=== PATIENT | female | born 1980 | race Caucasian/White ===

== ENCOUNTER 2020-01-05 04:26 | Inpatient (IN) | payer MEDICAID, OTHER ==
[~2020-01-05] VITALS: Ht 167.6 cm; Wt 66.7 kg
[2020-01-05] MEDS ORDERED: SODIUM CHLORIDE 0.9% 1,000 ML IV ONE (05:06)
[2020-01-05 05:33] LABS: EOSINOPHILS % 3.6 % (0.0-5.0); LYMPHOCYTES % 10.1 % (20.0-50.0); MEAN CORPUSCULAR HEMOGLOBIN 26.7 pg (28.0-32.0); MEAN CORPUSCULAR VOLUME 82.2 fL (81.0-99.0); MEAN PLATELET VOLUME 7.3 fl (7.4-10.4); MONOCYTES % 7.6 % (2.0-8.0); NEUTROPHILS % 77.7 % (40.0-76.0); PLATELET 283 x1000/uL (130-400); RED BLOOD CELL COUNT 1.82 mill/uL (4.2-5.4); RED CELL DISTRIBUTION WIDTH 16.3 % (11.6-14.6)
[2020-01-05 05:37] LABS: HEMOGLOBIN. 4.9 g/dL (12.0-16.0)
[2020-01-05 05:41] LABS: CHLORIDE 110 mEq/L (98-107)
[2020-01-05] MEDS ORDERED: DOXYCYCLINE HYCLATE 100MG CAPSULE PO SCH (08:45)
[2020-01-05] MEDS ORDERED: CEFTRIAXONE 1 G PREMIX 50 ML IV SCH (09:00)
[2020-01-05] MEDS ORDERED: GUAIFENESIN 200MG/10ML SUGAR FREE UDC PO PRN (10:00)
[2020-01-05] MEDS ORDERED: ACETAMINOPHEN 325MG TABLET PO PRN (10:00)
[2020-01-05] MEDS ORDERED: ONDANSETRON HCL 4MG/2ML INJ IV PRN (10:00)
[2020-01-05] MEDS ORDERED: DEXTROSE 50% WATER 50ML SYRINGE IV PRN (10:00)
[2020-01-05 10:11] LABS: BG BASE EXCESS -14.3 mmol/L (-2.0-2.0); BG DEOXYHEMOGLOBIN 9.6 % (0.0-5.0); BG HCO3 ACT 12.2 mmol/L (22.0-26.0); BG METHEMOGLOBIN 0.3 % (0.0-1.5); BG OXYGEN SATURATION 90.4 % (92.0-98.5); BG OXYHEMOGLOBIN 90.1 % (94.0-97.0); BG PCO2 30.6 mmHg (35.0-45.0); BG PH 7.218 (7.350-7.450); BG PO2 68.7 mmHg (75.0-100.0); BG SAMPLE SITE LEFT BRACHIAL; BG TOTAL HEMOGLOBIN 5.5 g/dL (12.0-18.0); BG VENT MODE ROOM AIR
[2020-01-05 12:43] LABS: PARTIAL THROMBOPLASTIN TIME 31.7 sec (23.4-31.0); PROTHROMBIN TIME 10.7 sec (9.6-11.0)
[2020-01-05] MEDS: CALCITRIOL 0.25MCG CAPSULE PO SCH (12:53)
[2020-01-05] MEDS: CITRIC ACID/SODIUM CITRATE SOLN 30ML UDC PO SCH ×3 (12:53→18:41)
[2020-01-05] MEDS: BLOOD SUGAR DIAGNOSTIC STRIP TEST SCH ×4 (13:00→21:05)
[2020-01-05 13:12] LABS: FERRITIN 14 ng/mL (10-291)
[2020-01-05 13:13] LABS: HEPATITIS B SURFACE AB < 3.1 mIU/mL
[2020-01-05 13:24] LABS: HEPATITIS B SURFACE ANTIGEN NEGATIVE
[2020-01-05] MEDS ORDERED: LIDOCAINE HCL 1% 20ML VIAL (Pyxis) INJ ONE (13:43)
[2020-01-05] MEDS: SODIUM CHLORIDE 0.9% INJ 3ML FLUSH IVF SCH ×2 (14:46→21:06)
[2020-01-05 17:23] VITALS: BP 117/78
[2020-01-05 20:00] VITALS: BP 138/81
[2020-01-05 20:12] LABS: HEMATOCRIT 18.3 % (36.0-48.0)
[2020-01-05] MEDS: INSULIN LISPRO 100 UNITS/ML SUBCUT SCH (21:00)
[2020-01-05] MEDS: EPOETIN ALFA 10000UNITS/ML VIAL SUBCUT SCH (21:00)
[2020-01-06] VITALS (12 sets, daily range): BP systolic 122–157; BP diastolic 74–102
[2020-01-06] MEDS: SODIUM CHLORIDE 0.9% INJ 3ML FLUSH IVF SCH ×2 (06:08→15:15)
[2020-01-06] MEDS: BLOOD SUGAR DIAGNOSTIC STRIP TEST SCH ×4 (06:42→20:36)
[2020-01-06] MEDS: INSULIN LISPRO 100 UNITS/ML SUBCUT SCH ×4 (07:10→20:37)
[2020-01-06 07:37] LABS: BASOPHILS % 0.5 % (0.0-2.0); EOSINOPHILS % 2.9 % (0.0-5.0); LYMPHOCYTES % 13.3 % (20.0-50.0); MEAN CORPUSCULAR HEMOGLOBIN 28.2 pg (28.0-32.0); MEAN CORPUSCULAR VOLUME 85.1 fL (81.0-99.0); MEAN PLATELET VOLUME 7.9 fl (7.4-10.4); MONOCYTES % 7.8 % (2.0-8.0); NEUTROPHILS % 75.5 % (40.0-76.0); PLATELET 241 x1000/uL (130-400); RED BLOOD CELL COUNT 2.38 mill/uL (4.2-5.4); RED CELL DISTRIBUTION WIDTH 15.5 % (11.6-14.6)
[2020-01-06 07:56] LABS: PHOSPHORUS 8.6 mg/dL (2.5-4.9)
[2020-01-06 08:39] LABS: HEMATOCRIT. 20.3 % (36.0-48.0); HEMOGLOBIN. 6.7 g/dL (12.0-16.0)
[2020-01-06] MEDS: CALCITRIOL 0.25MCG CAPSULE PO SCH (08:50)
[2020-01-06] MEDS: CITRIC ACID/SODIUM CITRATE SOLN 30ML UDC PO SCH ×3 (08:50→17:50)
[2020-01-06 09:10] LABS: HIV SCREEN 4G Non Reactive (Non Reactive)
[2020-01-06] MEDS ORDERED: PNEUMOCOCCAL 23-VAL P-SAC VAC 0.5 ML IM ONE (10:00)
[2020-01-06] MEDS ORDERED: ALTEPLASE 2MG/VIAL ITC NR (12:00)
[2020-01-06] MEDS ORDERED: ALTEPLASE 2MG/VIAL ITC SCH (12:45)
[2020-01-06 17:06] LABS: ANTI-DNA DOUBLE STRANDED QUANT 2 IU/mL (0-9)
[2020-01-06 18:48] LABS: HEMATOCRIT 23.9 % (36.0-48.0); HEMOGLOBIN 8.2 g/dL (12.0-16.0)
[2020-01-06 19:10] LABS: PROTHROMBIN TIME 10.9 sec (9.6-11.0)
[2020-01-06] MEDS: ACETAMINOPHEN 325MG TABLET PO PRN (20:37)
[2020-01-07 07:04] LABS: BASOPHILS % 0.8 % (0.0-2.0); EOSINOPHILS % 3.7 % (0.0-5.0); HEMATOCRIT. 24.3 % (36.0-48.0); HEMOGLOBIN. 8.3 g/dL (12.0-16.0); MEAN CORPUSCULAR VOLUME 84.8 fL (81.0-99.0); MEAN PLATELET VOLUME 7.6 fl (7.4-10.4); MONOCYTES % 13.6 % (2.0-8.0); NEUTROPHILS % 58.9 % (40.0-76.0); PLATELET 214 x1000/uL (130-400); RED BLOOD CELL COUNT 2.86 mill/uL (4.2-5.4); RED CELL DISTRIBUTION WIDTH 15.4 % (11.6-14.6)
[2020-01-07 07:12] LABS: PHOSPHORUS 4.5 mg/dL (2.5-4.9)
[2020-01-07] MEDS: BLOOD SUGAR DIAGNOSTIC STRIP TEST SCH ×4 (07:20→20:52)
[2020-01-07] MEDS: INSULIN LISPRO 100 UNITS/ML SUBCUT SCH ×4 (07:50→20:56)
[2020-01-07 08:00] VITALS: BP 155/92
[2020-01-07] MEDS: CITRIC ACID/SODIUM CITRATE SOLN 30ML UDC PO SCH ×3 (08:29→17:19)
[2020-01-07] MEDS: CALCITRIOL 0.25MCG CAPSULE PO SCH (08:29)
[2020-01-07] MEDS ORDERED: MAGNESIUM 2 G PREMIX 50 ML IV NR (11:00)
[2020-01-07] MEDS: DIPHENHYDRAMINE 50MG/ML VIAL IV PRN ×2 (11:27→20:56)
[2020-01-07 12:00] VITALS: BP 149/84
[2020-01-07] MEDS: SODIUM CHLORIDE 0.9% INJ 3ML FLUSH IVF SCH ×2 (13:00→20:53)
[2020-01-07 16:00] VITALS: BP 135/81
[2020-01-07 17:08] LABS: ANA IFA Negative (.)
[2020-01-07 20:00] VITALS: BP_SYST 155; BP_SYST 157; BP_DIAS 89; BP_DIAS 94
[2020-01-07] MEDS: MAGNESIUM OXIDE 400MG TABLET PO SCH (20:52)
[2020-01-07] MEDS: EPOETIN ALFA 10000UNITS/ML VIAL SUBCUT SCH (20:52)
[2020-01-08] VITALS (17 sets, daily range): BP systolic 133–165; BP diastolic 85–101
[2020-01-08] MEDS: SODIUM CHLORIDE 0.9% INJ 3ML FLUSH IVF SCH ×2 (05:59→14:00)
[2020-01-08] MEDS: BLOOD SUGAR DIAGNOSTIC STRIP TEST SCH ×4 (06:39→21:00)
[2020-01-08 06:53] LABS: BASOPHILS % 0.7 % (0.0-2.0); EOSINOPHILS % 4.6 % (0.0-5.0); HEMATOCRIT. 23.7 % (36.0-48.0); HEMOGLOBIN. 8.2 g/dL (12.0-16.0); MEAN CORPUSCULAR VOLUME 84.4 fL (81.0-99.0); MEAN PLATELET VOLUME 7.7 fl (7.4-10.4); MONOCYTES % 13.8 % (2.0-8.0); NEUTROPHILS % 60.9 % (40.0-76.0); PLATELET 201 x1000/uL (130-400); RED BLOOD CELL COUNT 2.81 mill/uL (4.2-5.4); RED CELL DISTRIBUTION WIDTH 15.5 % (11.6-14.6)
[2020-01-08] MEDS ORDERED: CEFAZOLIN 1000MG PREMIX 50 ML IV ONE ×2 (07:00→07:57)
[2020-01-08] MEDS: INSULIN LISPRO 100 UNITS/ML SUBCUT SCH ×4 (07:50→20:06)
[2020-01-08] MEDS ORDERED: LIDOCAINE HCL 1% 20ML VIAL (Pyxis) INJ ONE (07:53)
[2020-01-08] MEDS ORDERED: SODIUM BICARBONATE 4% (2.4MEQ) 5ML VIAL IV ONE (07:53)
[2020-01-08] MEDS ORDERED: HEPARIN 1000 UNITS/ML 10ML ONE (07:54)
[2020-01-08] MEDS ORDERED: FENTANYL CITRATE/PF 50MCG/ML 2ML VIAL ONE (07:57)
[2020-01-08] MEDS ORDERED: LIDOCAINE HCL/EPINEPHRINE 1%-EPI 1:100,000 20 ML VIAL ONE (08:03)
[2020-01-08] MEDS ORDERED: FENTANYL CITRATE/PF 50MCG/ML 2ML VIAL IV ONE (08:45)
[2020-01-08] MEDS: MAGNESIUM OXIDE 400MG TABLET PO SCH ×2 (09:49→20:05)
[2020-01-08] MEDS: CALCITRIOL 0.25MCG CAPSULE PO SCH (09:49)
[2020-01-08] MEDS: CLONIDINE 0.1MG TABLET PO PRN (17:07)
[2020-01-08] MEDS: ACETAMINOPHEN 325MG TABLET PO PRN (17:08)
[2020-01-09] VITALS: BP 146/92
[2020-01-09] MEDS: SODIUM CHLORIDE 0.9% INJ 3ML FLUSH IVF SCH ×4 (00:53→21:55)
[2020-01-09] MEDS: ACETAMINOPHEN 325MG TABLET PO PRN ×2 (00:58→20:37)
[2020-01-09] MEDS: ZOLPIDEM TARTRATE 5MG TABLET PO PRN ×2 (01:00→21:54)
[2020-01-09 04:00] VITALS: BP 145/90
[2020-01-09] MEDS: BLOOD SUGAR DIAGNOSTIC STRIP TEST SCH ×4 (06:51→20:36)
[2020-01-09] MEDS: INSULIN LISPRO 100 UNITS/ML SUBCUT SCH ×4 (07:50→20:36)
[2020-01-09 08:00] VITALS: BP 142/92
[2020-01-09 08:19] LABS: BASOPHILS % 0.6 % (0.0-2.0); EOSINOPHILS % 5.1 % (0.0-5.0); HEMOGLOBIN. 8.1 g/dL (12.0-16.0); MEAN CORPUSCULAR HEMOGLOBIN 28.9 pg (28.0-32.0); MEAN CORPUSCULAR VOLUME 85.2 fL (81.0-99.0); MEAN PLATELET VOLUME 7.9 fl (7.4-10.4); NEUTROPHILS % 60.3 % (40.0-76.0); PLATELET 194 x1000/uL (130-400); RED BLOOD CELL COUNT 2.81 mill/uL (4.2-5.4); RED CELL DISTRIBUTION WIDTH 15.6 % (11.6-14.6)
[2020-01-09 08:57] LABS: PHOSPHORUS 4.6 mg/dL (2.5-4.9)
[2020-01-09] MEDS: MAGNESIUM OXIDE 400MG TABLET PO SCH ×2 (09:17→20:37)
[2020-01-09] MEDS: CALCITRIOL 0.25MCG CAPSULE PO SCH (09:17)
[2020-01-09 12:30] VITALS: BP 136/90
[2020-01-09 16:30] VITALS: BP 140/92
[2020-01-09] MEDS: LOSARTAN POTASSIUM 50 MG TABLET PO SCH (17:20)
[2020-01-09 20:03] VITALS: BP 134/84
[2020-01-09 21:31] LABS: *AMPHETAMINES SCREEN URINE NEGATIVE (NEGATIVE); *BARBITURATES SCREEN URINE NEGATIVE (NEGATIVE); *BENZODIAZEPINES SCREEN URINE NEGATIVE (NEGATIVE); *COCAINE SCREEN URINE NEGATIVE (NEGATIVE); METHADONE URINE SCREEN NEGATIVE (NEGATIVE); OPIATES URINE SCREEN NEGATIVE (NEGATIVE)
[2020-01-09 21:32] LABS: CANNABINOID URINE SCREEN NEGATIVE (NEGATIVE); PHENCYCLIDINE URINE SCREEN NEGATIVE (NEGATIVE)
[2020-01-09] MEDS: EPOETIN ALFA 10000UNITS/ML VIAL SUBCUT SCH (21:54)
[2020-01-10] VITALS (7 sets, daily range): BP systolic 93–154; BP diastolic 51–97
[2020-01-10] MEDS: BLOOD SUGAR DIAGNOSTIC STRIP TEST SCH ×4 (06:18→21:00)
[2020-01-10] MEDS: SODIUM CHLORIDE 0.9% INJ 3ML FLUSH IVF SCH ×3 (06:18→22:09)
[2020-01-10 06:29] LABS: BASOPHILS % 0.5 % (0.0-2.0); HEMATOCRIT. 22.6 % (36.0-48.0); HEMOGLOBIN. 7.7 g/dL (12.0-16.0); LYMPHOCYTES % 18.2 % (20.0-50.0); MEAN CORPUSCULAR VOLUME 84.9 fL (81.0-99.0); MONOCYTES % 12.5 % (2.0-8.0); NEUTROPHILS % 62.8 % (40.0-76.0); PLATELET 206 x1000/uL (130-400); RED BLOOD CELL COUNT 2.67 mill/uL (4.2-5.4); RED CELL DISTRIBUTION WIDTH 15.3 % (11.6-14.6)
[2020-01-10 07:30] LABS: PHOSPHORUS 4.6 mg/dL (2.5-4.9)
[2020-01-10] MEDS: INSULIN LISPRO 100 UNITS/ML SUBCUT SCH ×4 (07:33→21:00)
[2020-01-10] MEDS: MAGNESIUM OXIDE 400MG TABLET PO SCH ×2 (09:01→22:08)
[2020-01-10] MEDS: LOSARTAN POTASSIUM 50 MG TABLET PO SCH (09:01)
[2020-01-10] MEDS: ACETAMINOPHEN 325MG TABLET PO PRN (09:02)
[2020-01-11] VITALS: BP 166/97
[2020-01-11 04:00] VITALS: BP 156/93
[2020-01-11] MEDS: SODIUM CHLORIDE 0.9% INJ 3ML FLUSH IVF SCH ×3 (06:14→20:55)
[2020-01-11 06:35] LABS: BASOPHILS % 0.6 % (0.0-2.0); EOSINOPHILS % 5.5 % (0.0-5.0); HEMATOCRIT. 24.3 % (36.0-48.0); HEMOGLOBIN. 8.2 g/dL (12.0-16.0); LYMPHOCYTES % 17.7 % (20.0-50.0); MEAN CORPUSCULAR HEMOGLOBIN 29.3 pg (28.0-32.0); MEAN CORPUSCULAR VOLUME 86.3 fL (81.0-99.0); MONOCYTES % 12.1 % (2.0-8.0); NEUTROPHILS % 64.1 % (40.0-76.0); PLATELET 224 x1000/uL (130-400); RED BLOOD CELL COUNT 2.82 mill/uL (4.2-5.4); RED CELL DISTRIBUTION WIDTH 15.5 % (11.6-14.6)
[2020-01-11] MEDS: BLOOD SUGAR DIAGNOSTIC STRIP TEST SCH ×4 (07:20→20:54)
[2020-01-11 07:23] LABS: PHOSPHORUS 5.3 mg/dL (2.5-4.9)
[2020-01-11] MEDS: INSULIN LISPRO 100 UNITS/ML SUBCUT SCH ×4 (07:50→21:07)
[2020-01-11 08:00] VITALS: BP 155/96
[2020-01-11] MEDS: LOSARTAN POTASSIUM 50 MG TABLET PO SCH (09:00)
[2020-01-11] MEDS: MAGNESIUM OXIDE 400MG TABLET PO SCH ×2 (09:10→20:50)
[2020-01-11 12:00] VITALS: BP 148/90
[2020-01-11] MEDS ORDERED: HEPARIN SODIUM 1,000 UNIT/1ML VIAL IV NR (14:30)
[2020-01-11 16:00] VITALS: BP 122/88
[2020-01-11 20:00] VITALS: BP 160/94
[2020-01-12] VITALS: BP 159/102
[2020-01-12 04:00] VITALS: BP 162/109
[2020-01-12] MEDS: SODIUM CHLORIDE 0.9% INJ 3ML FLUSH IVF SCH ×2 (05:11→12:15)
[2020-01-12] MEDS: INSULIN LISPRO 100 UNITS/ML SUBCUT SCH ×2 (05:11→12:13)
[2020-01-12] MEDS: BLOOD SUGAR DIAGNOSTIC STRIP TEST SCH ×2 (05:11→12:07)
[2020-01-12] MEDS: CLONIDINE 0.1MG TABLET PO PRN (06:03)
[2020-01-12 08:00] VITALS: BP 135/92
[2020-01-12] MEDS: LOSARTAN POTASSIUM 50 MG TABLET PO SCH (08:08)
[2020-01-12] MEDS: MAGNESIUM OXIDE 400MG TABLET PO SCH (08:08)
[2020-01-12] MEDS ORDERED: LOSA50TA3 PO (10:40)
[2020-01-12 11:05] LABS: BASOPHILS % 0.6 % (0.0-2.0); EOSINOPHILS % 5.6 % (0.0-5.0); HEMATOCRIT. 23.6 % (36.0-48.0); HEMOGLOBIN. 7.8 g/dL (12.0-16.0); LYMPHOCYTES % 14.1 % (20.0-50.0); MEAN CORPUSCULAR HEMOGLOBIN 28.6 pg (28.0-32.0); MEAN CORPUSCULAR VOLUME 86.3 fL (81.0-99.0); MEAN PLATELET VOLUME 7.7 fl (7.4-10.4); MONOCYTES % 12.3 % (2.0-8.0); NEUTROPHILS % 67.4 % (40.0-76.0); PLATELET 213 x1000/uL (130-400); RED BLOOD CELL COUNT 2.73 mill/uL (4.2-5.4); RED CELL DISTRIBUTION WIDTH 15.7 % (11.6-14.6)
[2020-01-12 12:00] VITALS: BP 135/85
[2020-01-12 15:42] VITALS: BP 127/74
[2020-01-12 16:00] VITALS: BP 127/74
== END 2020-01-12 16:25 | disposition home or self-care (01) | DRG 469 ==
LOC: ER 04:26 → MICUSO 07:19 → 6WST 17:03
PROVIDERS: ADMIT Internal Medicine; ATTEND Internal Medicine
PROC: 30233N1 Transfusion of Nonautologous Red Blood Cells into Peripheral Vein, Percutaneous Approach (ICD-10-PCS; principal; 2020-01-05)
PROC: 5A1D70Z Performance of Urinary Filtration, Intermittent, Less than 6 Hours Per Day (ICD-10-PCS; 2020-01-06)
PROC: 5A1D70Z Performance of Urinary Filtration, Intermittent, Less than 6 Hours Per Day (ICD-10-PCS; 2020-01-07)
PROC: 0JHD3XZ Insertion of Tunneled Vascular Access Device into Right Upper Arm Subcutaneous Tissue and Fascia, Percutaneous Approach (ICD-10-PCS; 2020-01-08)
PROC: 02HV33Z Insertion of Infusion Device into Superior Vena Cava, Percutaneous Approach (ICD-10-PCS; 2020-01-08)
PROC: B5181ZA Fluoroscopy of Superior Vena Cava using Low Osmolar Contrast, Guidance (ICD-10-PCS; 2020-01-08)
PROC: 5A1D70Z Performance of Urinary Filtration, Intermittent, Less than 6 Hours Per Day (ICD-10-PCS; 2020-01-10)
PROC: 5A1D70Z Performance of Urinary Filtration, Intermittent, Less than 6 Hours Per Day (ICD-10-PCS; 2020-01-12)
DX: N17.9 Acute kidney failure, unspecified (principal); J96.90 Respiratory failure, unspecified, unspecified whether with hypoxia or hypercapnia; E43 Unspecified severe protein-calorie malnutrition; J81.1 Chronic pulmonary edema; J90 Pleural effusion, not elsewhere classified; E10.22 Type 1 diabetes mellitus with diabetic chronic kidney disease; N18.6 End stage renal disease; E83.51 Hypocalcemia; I12.9 Hypertensive chronic kidney disease with stage 1 through stage 4 chronic kidney disease, or unspecified chronic kidney disease; D63.8 Anemia in other chronic diseases classified elsewhere; D64.9 Anemia, unspecified; L29.9 Pruritus, unspecified; N25.81 Secondary hyperparathyroidism of renal origin; Z82.49 Family history of ischemic heart disease and other diseases of the circulatory system; Z79.4 Long term (current) use of insulin; Z84.1 Family history of disorders of kidney and ureter; Z83.3 Family history of diabetes mellitus; Z87.891 Personal history of nicotine dependence; Z79.899 Other long term (current) drug therapy; Z68.23 Body mass index [BMI] 23.0-23.9, adult
CPT/HCPCS: 36415; 36558; 36589; 36600; 71045; 76770; 76937; 77001; 80048; 80053; 80305; 82270; 82375; 82550; 82728; 82805; 82962; 83010; 83036; 83540; 83550; 83605; 83615; 83735; 83970; 84100; 84443; 84484; 85014; 85018; 85025; 85049; 85384; 86160; 86225; 86256; 86705; 86706; 86803; 86850; 86900; 86920; 87340; 87389; 90732; 93005; 99152; 99153; 99285; C1750; C1752; C1769; J0690; J0696; J0885; J1200; J1642; J1644; J1815; J2997; J3010; J3475; J3490; J7030; P9016; G0500

== ENCOUNTER 2020-01-18 12:08 | Inpatient (IN) | payer MEDICAID, OTHER ==
[~2020-01-18] VITALS: Ht 165.1 cm; Wt 77.6 kg
[~2020-01-18 12:08] MED LIST: LOSA50TA3 PO
[2020-01-18 14:07] LABS: BASOPHILS % 0.6 % (0.0-2.0); EOSINOPHILS % 0.4 % (0.0-5.0); HEMATOCRIT. 27.8 % (36.0-48.0); HEMOGLOBIN. 9.2 g/dL (12.0-16.0); LYMPHOCYTES % 8.6 % (20.0-50.0); MEAN CORPUSCULAR HEMOGLOBIN 28.4 pg (28.0-32.0); MEAN CORPUSCULAR VOLUME 85.3 fL (81.0-99.0); MEAN PLATELET VOLUME 7.6 fl (7.4-10.4); MONOCYTES % 5.9 % (2.0-8.0); NEUTROPHILS % 84.5 % (40.0-76.0); PLATELET 226 x1000/uL (130-400); RED BLOOD CELL COUNT 3.26 mill/uL (4.2-5.4); RED CELL DISTRIBUTION WIDTH 15.5 % (11.6-14.6)
[2020-01-18 14:15] LABS: CHLORIDE 103 mEq/L (98-107)
[2020-01-18 14:20] LABS: HCG SCREEN NEGATIVE
[2020-01-18] MEDS ORDERED: HYDROCODONE/ACETAMINOPHEN 10/325MG TABLET PO PRN (17:45)
[2020-01-18] MEDS ORDERED: DOCUSATE SODIUM 100MG CAPSULE PO PRN (17:45)
[2020-01-18] MEDS ORDERED: CLONIDINE 0.1MG TABLET PO PRN (17:45)
[2020-01-18] MEDS ORDERED: ACETAMINOPHEN 325MG TABLET PO PRN (17:45)
[2020-01-18] MEDS ORDERED: HYDRALAZINE 20MG/ML VIAL IV PRN (17:45)
[2020-01-18] MEDS ORDERED: DEXTROSE 50% WATER 50ML SYRINGE IV PRN (17:45)
[2020-01-18] MEDS ORDERED: ONDANSETRON HCL 4MG/2ML INJ IV PRN (17:45)
[2020-01-18] MEDS ORDERED: MAGNESIUM/ALUMINUM HYDROXIDE/SIMETHICONE 30ML UDC PO PRN (17:45)
[2020-01-18] MEDS ORDERED: IPRATROPIUM/ALBUTEROL 0.5-3(2.5)MG/3ML NEB NEB PRN (17:45)
[2020-01-18] MEDS ORDERED: GUAIFENESIN 200MG/10ML SUGAR FREE UDC PO PRN (17:45)
[2020-01-18] MEDS ORDERED: MORPHINE SULFATE 2 MG/ML CPJ (NOT FOR IM USE) IV PRN (17:45)
[2020-01-18] MEDS ORDERED: LORAZEPAM 2MG/ML CPJ IV PRN (17:45)
[2020-01-18] MEDS ORDERED: DIPHENHYDRAMINE 50MG/ML VIAL IV PRN (17:45)
[2020-01-18] MEDS ORDERED: ENOXAPARIN 40MG/0.4ML SYR SUBCUT SCH (18:00)
[2020-01-18] MEDS ORDERED: ENOXAPARIN 30MG/0.3ML SYR SUBCUT SCH (18:00)
[2020-01-18 19:30] LABS: CLARITY URINE TURBID (CLEAR); COLOR URINE YELLOW (YELLOW); KETONES URINE NEGATIVE (NEGATIVE); LEUKOCYTE ESTERASE URINE 3+ (NEGATIVE); NITRITE URINE NEGATIVE (NEGATIVE); OCCULT BLOOD URINE 2+ (NEGATIVE); PROTEIN URINE 4+ (NEGATIVE); SPECIFIC GRAVITY URINE 1.012 (1.005-1.030); UROBILINOGEN URINE 0.2 E.U./dL (0.2-1.0)
[2020-01-18] MEDS: INSULIN LISPRO 100 UNITS/ML SUBCUT SCH ×2 (21:00→21:21)
[2020-01-18] MEDS: BLOOD SUGAR DIAGNOSTIC STRIP TEST SCH (21:15)
[2020-01-18] MEDS ORDERED: CEFTRIAXONE 1 G PREMIX 50 ML IV SCH (23:30)
[2020-01-18] MEDS: SODIUM CHLORIDE 0.9% INJ 3ML FLUSH IVF SCH (23:48)
[2020-01-19] VITALS: BP_SYST 141; BP_SYST 148; BP_DIAS 90
[2020-01-19 02:14] LABS: CREATINE KINASE 116 IU/L (26-192)
[2020-01-19 02:15] LABS: CREATINE KINASE MB FRACTION 3.3 ng/mL (0.5-3.6)
[2020-01-19 04:00] VITALS: BP 148/90
[2020-01-19] MEDS: SODIUM CHLORIDE 0.9% INJ 3ML FLUSH IVF SCH ×2 (05:40→13:18)
[2020-01-19] MEDS: INSULIN LISPRO 100 UNITS/ML SUBCUT SCH ×3 (06:30→16:53)
[2020-01-19] MEDS: BLOOD SUGAR DIAGNOSTIC STRIP TEST SCH ×3 (06:30→16:53)
[2020-01-19 08:00] VITALS: BP 144/90
[2020-01-19 09:41] LABS: BASOPHILS % 0.9 % (0.0-2.0); EOSINOPHILS % 3.4 % (0.0-5.0); HEMATOCRIT. 25.7 % (36.0-48.0); HEMOGLOBIN. 8.5 g/dL (12.0-16.0); LYMPHOCYTES % 15.2 % (20.0-50.0); MEAN CORPUSCULAR HEMOGLOBIN 28.4 pg (28.0-32.0); MEAN CORPUSCULAR VOLUME 85.6 fL (81.0-99.0); MEAN PLATELET VOLUME 8.5 fl (7.4-10.4); MONOCYTES % 10.5 % (2.0-8.0); PLATELET 227 x1000/uL (130-400); RED CELL DISTRIBUTION WIDTH 15.6 % (11.6-14.6)
[2020-01-19 09:48] LABS: CHLORIDE 101 mEq/L (98-107)
[2020-01-19 09:56] LABS: LDL CHOLESTEROL 44 mg/dL (5-100)
[2020-01-19 09:57] LABS: CREATINE KINASE 112 IU/L (26-192)
[2020-01-19 09:58] LABS: CREATINE KINASE MB FRACTION 3.1 ng/mL (0.5-3.6); HDL CHOLESTEROL 57 mg/dL (40-59); T4 FREE 1.06 ng/dL (0.76-1.46)
[2020-01-19] MEDS ORDERED: LOSARTAN POTASSIUM 50 MG TABLET PO SCH (10:45)
[2020-01-19 12:00] VITALS: BP 131/84
[2020-01-19] MEDS ORDERED: CALCIUM CARBONATE 1250MG TABLET (500MG ELEMENTAL CALCIUM) PO SCH (12:40)
[2020-01-19] MEDS ORDERED: CALCITRIOL 0.5MCG CAPSULE PO SCH (13:00)
[2020-01-19 16:00] VITALS: BP 128/83
[2020-01-19 16:19] VITALS: BP 128/83
[2020-01-19] MEDS ORDERED: EPOETIN ALFA 4000UNITS/ML VIAL SUBCUT SCH (21:00)
[2020-01-19] MEDS ORDERED: ATORVASTATIN CALCIUM 20MG TABLET PO SCH (21:00)
== END 2020-01-19 19:35 | disposition home or self-care (01) | DRG 420 ==
LOC: ER 12:08 → 8WST 15:30 → EDBEDREQ 15:34 → EDBEDREQTM 15:34 → ENRESERV 20:37
PROVIDERS: ADMIT Internal Medicine; ATTEND Internal Medicine
PROC: 5A1D70Z Performance of Urinary Filtration, Intermittent, Less than 6 Hours Per Day (ICD-10-PCS; principal; 2020-01-19)
DX: E11.649 Type 2 diabetes mellitus with hypoglycemia without coma (principal); I12.0 Hypertensive chronic kidney disease with stage 5 chronic kidney disease or end stage renal disease; E46 Unspecified protein-calorie malnutrition; E11.22 Type 2 diabetes mellitus with diabetic chronic kidney disease; E83.51 Hypocalcemia; D64.9 Anemia, unspecified; N18.6 End stage renal disease; N39.0 Urinary tract infection, site not specified; N25.81 Secondary hyperparathyroidism of renal origin; Z82.49 Family history of ischemic heart disease and other diseases of the circulatory system; Z83.3 Family history of diabetes mellitus; Z84.1 Family history of disorders of kidney and ureter; Z99.2 Dependence on renal dialysis; Z68.28 Body mass index [BMI] 28.0-28.9, adult
CPT/HCPCS: 36415; 71045; 80053; 80061; 81003; 82550; 82553; 82962; 83880; 84439; 84443; 84484; 84703; 85025; 93005; 93970; 99285; J0696; J0885; J1650; J1815

== ENCOUNTER 2020-01-26 11:22 | Inpatient (IN) | payer MEDICAID, SELFPAY ==
[~2020-01-26] VITALS: Ht 165.1 cm; Wt 62.6 kg
[2020-01-26 12:12] LABS: BASOPHILS % 0.9 % (0.0-2.0); EOSINOPHILS % 1.2 % (0.0-5.0); HEMATOCRIT. 26.3 % (36.0-48.0); HEMOGLOBIN. 8.7 g/dL (12.0-16.0); LYMPHOCYTES % 22.8 % (20.0-50.0); MEAN CORPUSCULAR HEMOGLOBIN 27.9 pg (28.0-32.0); MEAN CORPUSCULAR VOLUME 84.5 fL (81.0-99.0); MEAN PLATELET VOLUME 9.3 fl (7.4-10.4); MONOCYTES % 10.3 % (2.0-8.0); NEUTROPHILS % 64.8 % (40.0-76.0); PLATELET 158 x1000/uL (130-400); RED BLOOD CELL COUNT 3.11 mill/uL (4.2-5.4); RED CELL DISTRIBUTION WIDTH 15.1 % (11.6-14.6)
[2020-01-26 12:18] LABS: CHLORIDE 102 mEq/L (98-107)
[2020-01-26 14:13] LABS: CLARITY URINE TURBID (CLEAR); COLOR URINE DK YELLOW (YELLOW); KETONES URINE NEGATIVE (NEGATIVE); LEUKOCYTE ESTERASE URINE 3+ (NEGATIVE); NITRITE URINE NEGATIVE (NEGATIVE); OCCULT BLOOD URINE 2+ (NEGATIVE); PROTEIN URINE 3+ (NEGATIVE); SPECIFIC GRAVITY URINE 1.012 (1.005-1.030)
[2020-01-27 02:10] VITALS: BP 147/91
[2020-01-27 04:00] VITALS: BP 120/61
[2020-01-27] MEDS ORDERED: DEXTROSE 50% WATER 50ML SYRINGE IV PRN ×2 (04:45→07:30)
[2020-01-27] MEDS ORDERED: MORPHINE SULFATE 2 MG/ML CPJ (NOT FOR IM USE) IV PRN (07:30)
[2020-01-27] MEDS ORDERED: HYDROCODONE/ACETAMINOPHEN 10/325MG TABLET PO PRN (07:30)
[2020-01-27] MEDS ORDERED: MAGNESIUM/ALUMINUM HYDROXIDE/SIMETHICONE 30ML UDC PO PRN (07:30)
[2020-01-27] MEDS ORDERED: HYDRALAZINE 20MG/ML VIAL IV PRN (07:30)
[2020-01-27] MEDS ORDERED: CLONIDINE 0.1MG TABLET PO PRN (07:30)
[2020-01-27] MEDS ORDERED: ONDANSETRON HCL 4MG/2ML INJ IV PRN (07:30)
[2020-01-27] MEDS ORDERED: DIPHENHYDRAMINE 50MG/ML VIAL IV PRN (07:30)
[2020-01-27] MEDS ORDERED: DOCUSATE SODIUM 100MG CAPSULE PO PRN (07:30)
[2020-01-27] MEDS ORDERED: IPRATROPIUM/ALBUTEROL 0.5-3(2.5)MG/3ML NEB NEB PRN (07:30)
[2020-01-27] MEDS ORDERED: LORAZEPAM 2MG/ML CPJ IV PRN (07:30)
[2020-01-27] MEDS ORDERED: GUAIFENESIN 200MG/10ML SUGAR FREE UDC PO PRN (07:30)
[2020-01-27] MEDS: BLOOD SUGAR DIAGNOSTIC STRIP TEST SCH ×4 (07:40→20:35)
[2020-01-27] MEDS ORDERED: BLOOD SUGAR DIAGNOSTIC STRIP TEST SCH (07:40)
[2020-01-27 08:00] VITALS: BP 120/89
[2020-01-27] MEDS ORDERED: INSULIN LISPRO 100 UNITS/ML SUBCUT SCH (08:10)
[2020-01-27] MEDS: INSULIN LISPRO 100 UNITS/ML SUBCUT SCH ×4 (08:10→21:35)
[2020-01-27] MEDS: ENOXAPARIN 30MG/0.3ML SYR SUBCUT SCH (08:58)
[2020-01-27 12:00] VITALS: BP 130/81
[2020-01-27] MEDS: SODIUM CHLORIDE 0.9% INJ 3ML FLUSH IVF SCH ×2 (12:37→21:36)
[2020-01-27 16:00] VITALS: BP 128/89
[2020-01-27] MEDS ORDERED: AZITHROMYCIN 250 MG in DEXT 5% WATER 250 ML IV NR (17:00)
[2020-01-27] MEDS: ALBUTEROL 6.7GM HFA INHALER ORI SCH ×2 (17:00→17:53)
[2020-01-27 20:00] VITALS: BP 113/84
[2020-01-27] MEDS: EPOETIN ALFA 10000UNITS/ML VIAL SUBCUT SCH (21:36)
[2020-01-27] MEDS: ACETAMINOPHEN 325MG TABLET PO PRN (22:01)
[2020-01-28] VITALS: BP 106/71
[2020-01-28] MEDS: ALBUTEROL 6.7GM HFA INHALER ORI SCH ×5 (00:49→23:48)
[2020-01-28 05:45] LABS: CHLORIDE 104 mEq/L (98-107); PHOSPHORUS 3.6 mg/dL (2.5-4.9)
[2020-01-28] MEDS: BLOOD SUGAR DIAGNOSTIC STRIP TEST SCH ×4 (07:40→21:09)
[2020-01-28 08:00] VITALS: BP 120/69
[2020-01-28] MEDS: INSULIN LISPRO 100 UNITS/ML SUBCUT SCH ×4 (08:10→21:00)
[2020-01-28 08:15] LABS: HEMATOCRIT. 26.7 % (36.0-48.0); MEAN CORPUSCULAR HEMOGLOBIN 28.2 pg (28.0-32.0); MEAN CORPUSCULAR VOLUME 83.8 fL (81.0-99.0); MEAN PLATELET VOLUME 9.7 fl (7.4-10.4); PLATELET 161 x1000/uL (130-400); RED BLOOD CELL COUNT 3.18 mill/uL (4.2-5.4); RED CELL DISTRIBUTION WIDTH 15.1 % (11.6-14.6)
[2020-01-28] MEDS: ENOXAPARIN 30MG/0.3ML SYR SUBCUT SCH (08:46)
[2020-01-28] MEDS: SODIUM CHLORIDE 0.9% INJ 3ML FLUSH IVF SCH ×3 (08:46→21:09)
[2020-01-28 12:00] VITALS: BP 127/71
[2020-01-28 14:42] LABS: PLATELET ESTIMATE NORMAL
[2020-01-28 16:00] VITALS: BP 110/74
[2020-01-28] MEDS: AZITHROMYCIN 250 MG in DEXT 5% WATER 250 ML IV SCH (16:43)
[2020-01-28 20:00] VITALS: BP 121/81
[2020-01-29] VITALS: BP 118/81
[2020-01-29 04:00] VITALS: BP 129/86
[2020-01-29] MEDS: SODIUM CHLORIDE 0.9% INJ 3ML FLUSH IVF SCH ×2 (05:10→13:07)
[2020-01-29] MEDS: ALBUTEROL 6.7GM HFA INHALER ORI SCH ×3 (05:11→17:02)
[2020-01-29 05:44] LABS: BASOPHILS % 0.7 % (0.0-2.0); EOSINOPHILS % 2.1 % (0.0-5.0); HEMATOCRIT. 24.5 % (36.0-48.0); HEMOGLOBIN. 8.3 g/dL (12.0-16.0); MEAN CORPUSCULAR HEMOGLOBIN 27.9 pg (28.0-32.0); MEAN CORPUSCULAR VOLUME 82.9 fL (81.0-99.0); MEAN PLATELET VOLUME 9.2 fl (7.4-10.4); MONOCYTES % 14.3 % (2.0-8.0); NEUTROPHILS % 42.9 % (40.0-76.0); PLATELET 167 x1000/uL (130-400); RED BLOOD CELL COUNT 2.96 mill/uL (4.2-5.4)
[2020-01-29 05:55] LABS: PHOSPHORUS 4.6 mg/dL (2.5-4.9)
[2020-01-29] MEDS: BLOOD SUGAR DIAGNOSTIC STRIP TEST SCH ×4 (05:57→22:33)
[2020-01-29] MEDS: INSULIN LISPRO 100 UNITS/ML SUBCUT SCH ×4 (06:52→22:36)
[2020-01-29 08:19] VITALS: BP 124/72
[2020-01-29] MEDS: ENOXAPARIN 30MG/0.3ML SYR SUBCUT SCH (08:53)
[2020-01-29 12:00] VITALS: BP 112/62
[2020-01-29 13:09] VITALS: BP 101/69
[2020-01-29 15:22] VITALS: BP 115/68
[2020-01-29] MEDS: AZITHROMYCIN 250 MG in DEXT 5% WATER 250 ML IV SCH (16:13)
[2020-01-29] MEDS: EPOETIN ALFA 10000UNITS/ML VIAL SUBCUT SCH (22:33)
[2020-01-30] VITALS: BP 119/81
[2020-01-30] MEDS: ALBUTEROL 6.7GM HFA INHALER ORI SCH ×5 (00:41→23:15)
[2020-01-30] MEDS: SODIUM CHLORIDE 0.9% INJ 3ML FLUSH IVF SCH ×4 (00:41→22:45)
[2020-01-30 04:00] VITALS: BP 130/88
[2020-01-30] MEDS: BLOOD SUGAR DIAGNOSTIC STRIP TEST SCH ×4 (05:44→20:39)
[2020-01-30] MEDS: INSULIN LISPRO 100 UNITS/ML SUBCUT SCH ×4 (05:54→20:39)
[2020-01-30 08:00] VITALS: BP 122/68
[2020-01-30 08:46] LABS: BASOPHILS % 0.8 % (0.0-2.0); EOSINOPHILS % 2.8 % (0.0-5.0); HEMATOCRIT. 27.8 % (36.0-48.0); HEMOGLOBIN. 9.3 g/dL (12.0-16.0); LYMPHOCYTES % 33.4 % (20.0-50.0); MEAN CORPUSCULAR VOLUME 84.1 fL (81.0-99.0); MEAN PLATELET VOLUME 8.8 fl (7.4-10.4); MONOCYTES % 13.1 % (2.0-8.0); NEUTROPHILS % 49.9 % (40.0-76.0); PLATELET 205 x1000/uL (130-400); RED CELL DISTRIBUTION WIDTH 15.2 % (11.6-14.6)
[2020-01-30] MEDS: ENOXAPARIN 30MG/0.3ML SYR SUBCUT SCH (08:50)
[2020-01-30 08:59] LABS: PHOSPHORUS 3.7 mg/dL (2.5-4.9)
[2020-01-30 12:00] VITALS: BP 127/78
[2020-01-30 16:00] VITALS: BP 124/82
[2020-01-30] MEDS: AZITHROMYCIN 250 MG in DEXT 5% WATER 250 ML IV SCH (17:04)
[2020-01-30 20:00] VITALS: BP 124/76
[2020-01-31] VITALS: BP 134/95
[2020-01-31 04:00] VITALS: BP 123/89
[2020-01-31] MEDS: ALBUTEROL 6.7GM HFA INHALER ORI SCH ×4 (04:58→23:27)
[2020-01-31] MEDS: BLOOD SUGAR DIAGNOSTIC STRIP TEST SCH ×4 (07:40→20:48)
[2020-01-31] MEDS: INSULIN LISPRO 100 UNITS/ML SUBCUT SCH ×4 (07:49→20:48)
[2020-01-31 08:00] VITALS: BP 126/84
[2020-01-31] MEDS: ENOXAPARIN 30MG/0.3ML SYR SUBCUT SCH (08:18)
[2020-01-31] MEDS: SODIUM CHLORIDE 0.9% INJ 3ML FLUSH IVF SCH ×3 (08:18→20:48)
[2020-01-31 09:36] LABS: BASOPHILS % 0.8 % (0.0-2.0); EOSINOPHILS % 3.8 % (0.0-5.0); HEMATOCRIT. 26.5 % (36.0-48.0); HEMOGLOBIN. 8.9 g/dL (12.0-16.0); LYMPHOCYTES % 33.6 % (20.0-50.0); MEAN CORPUSCULAR HEMOGLOBIN 28.4 pg (28.0-32.0); MEAN CORPUSCULAR VOLUME 84.3 fL (81.0-99.0); MEAN PLATELET VOLUME 8.7 fl (7.4-10.4); MONOCYTES % 13.5 % (2.0-8.0); NEUTROPHILS % 48.3 % (40.0-76.0); PLATELET 246 x1000/uL (130-400); RED BLOOD CELL COUNT 3.14 mill/uL (4.2-5.4); RED CELL DISTRIBUTION WIDTH 15.2 % (11.6-14.6)
[2020-01-31 09:50] LABS: PHOSPHORUS 4.5 mg/dL (2.5-4.9)
[2020-01-31 12:10] VITALS: BP 110/74
[2020-01-31 16:00] VITALS: BP 123/77
[2020-01-31] MEDS: AZITHROMYCIN 250 MG in DEXT 5% WATER 250 ML IV SCH (17:15)
[2020-01-31 20:00] VITALS: BP 140/90
[2020-02-01] VITALS: BP 134/92
[2020-02-01 04:00] VITALS: BP 142/90
[2020-02-01] MEDS: SODIUM CHLORIDE 0.9% INJ 3ML FLUSH IVF SCH ×3 (05:14→22:19)
[2020-02-01] MEDS: ALBUTEROL 6.7GM HFA INHALER ORI SCH ×4 (05:14→22:18)
[2020-02-01 07:00] LABS: BASOPHILS % 0.6 % (0.0-2.0); EOSINOPHILS % 4.1 % (0.0-5.0); HEMOGLOBIN. 8.1 g/dL (12.0-16.0); LYMPHOCYTES % 29.7 % (20.0-50.0); MEAN CORPUSCULAR HEMOGLOBIN 28.2 pg (28.0-32.0); MEAN CORPUSCULAR VOLUME 83.7 fL (81.0-99.0); MEAN PLATELET VOLUME 8.9 fl (7.4-10.4); MONOCYTES % 12.2 % (2.0-8.0); NEUTROPHILS % 53.4 % (40.0-76.0); PLATELET 267 x1000/uL (130-400); RED BLOOD CELL COUNT 2.87 mill/uL (4.2-5.4)
[2020-02-01] MEDS: INSULIN LISPRO 100 UNITS/ML SUBCUT SCH ×4 (07:40→21:00)
[2020-02-01] MEDS: BLOOD SUGAR DIAGNOSTIC STRIP TEST SCH ×4 (07:40→21:00)
[2020-02-01 08:00] VITALS: BP 134/96
[2020-02-01] MEDS: ENOXAPARIN 30MG/0.3ML SYR SUBCUT SCH (09:10)
[2020-02-01 12:00] VITALS: BP 119/81
[2020-02-01 16:00] VITALS: BP 117/56
[2020-02-01 20:00] VITALS: BP 119/78
[2020-02-01] MEDS: EPOETIN ALFA 10000UNITS/ML VIAL SUBCUT SCH (22:18)
[2020-02-02] VITALS: BP 125/77
[2020-02-02 04:00] VITALS: BP 120/77
[2020-02-02] MEDS: ALBUTEROL 6.7GM HFA INHALER ORI SCH ×3 (05:10→17:32)
[2020-02-02] MEDS: SODIUM CHLORIDE 0.9% INJ 3ML FLUSH IVF SCH ×3 (05:10→22:00)
[2020-02-02] MEDS: INSULIN LISPRO 100 UNITS/ML SUBCUT SCH ×4 (06:00→21:00)
[2020-02-02] MEDS: BLOOD SUGAR DIAGNOSTIC STRIP TEST SCH ×4 (06:00→21:00)
[2020-02-02 08:00] VITALS: BP 117/78
[2020-02-02] MEDS: ENOXAPARIN 30MG/0.3ML SYR SUBCUT SCH (08:41)
[2020-02-02 12:00] VITALS: BP 109/80
[2020-02-02 16:00] VITALS: BP 129/81
[2020-02-02 20:00] VITALS: BP 128/82
[2020-02-03] VITALS: BP 136/86
[2020-02-03] MEDS: ALBUTEROL 6.7GM HFA INHALER ORI SCH ×5 (00:20→23:24)
[2020-02-03 04:00] VITALS: BP 150/92
[2020-02-03] MEDS: SODIUM CHLORIDE 0.9% INJ 3ML FLUSH IVF SCH ×3 (06:00→21:08)
[2020-02-03] MEDS: INSULIN LISPRO 100 UNITS/ML SUBCUT SCH ×4 (06:26→21:00)
[2020-02-03] MEDS: BLOOD SUGAR DIAGNOSTIC STRIP TEST SCH ×4 (06:26→21:06)
[2020-02-03 08:00] VITALS: BP 131/81
[2020-02-03] MEDS: ENOXAPARIN 30MG/0.3ML SYR SUBCUT SCH (08:55)
[2020-02-03 12:00] VITALS: BP 127/84
[2020-02-03 16:00] VITALS: BP 122/77
[2020-02-03 20:00] VITALS: BP 130/82
[2020-02-04] VITALS (7 sets, daily range): BP systolic 94–128; BP diastolic 60–75
[2020-02-04 05:16] LABS: PHOSPHORUS 5.7 mg/dL (2.5-4.9)
[2020-02-04 05:37] LABS: BASOPHILS % 0.9 % (0.0-2.0); EOSINOPHILS % 3.3 % (0.0-5.0); HEMATOCRIT. 23.7 % (36.0-48.0); HEMOGLOBIN. 7.9 g/dL (12.0-16.0); MEAN CORPUSCULAR HEMOGLOBIN 28.6 pg (28.0-32.0); MEAN CORPUSCULAR VOLUME 85.4 fL (81.0-99.0); MONOCYTES % 12.3 % (2.0-8.0); NEUTROPHILS % 53.5 % (40.0-76.0); PLATELET 362 x1000/uL (130-400); RED BLOOD CELL COUNT 2.78 mill/uL (4.2-5.4); RED CELL DISTRIBUTION WIDTH 15.5 % (11.6-14.6)
[2020-02-04] MEDS: SODIUM CHLORIDE 0.9% INJ 3ML FLUSH IVF SCH ×3 (05:52→20:29)
[2020-02-04] MEDS: ALBUTEROL 6.7GM HFA INHALER ORI SCH ×4 (05:53→22:57)
[2020-02-04] MEDS: INSULIN LISPRO 100 UNITS/ML SUBCUT SCH ×4 (06:01→20:29)
[2020-02-04] MEDS: BLOOD SUGAR DIAGNOSTIC STRIP TEST SCH ×4 (06:01→20:29)
[2020-02-04] MEDS: ENOXAPARIN 30MG/0.3ML SYR SUBCUT SCH (10:09)
[2020-02-04] MEDS ORDERED: HEPARIN SODIUM 1,000 UNIT/1ML VIAL IV ONE (15:15)
[2020-02-05] VITALS: BP 110/59
[2020-02-05 04:00] VITALS: BP 100/67
[2020-02-05] MEDS: SODIUM CHLORIDE 0.9% INJ 3ML FLUSH IVF SCH ×3 (05:25→21:25)
[2020-02-05] MEDS: ALBUTEROL 6.7GM HFA INHALER ORI SCH ×3 (05:25→18:32)
[2020-02-05] MEDS: BLOOD SUGAR DIAGNOSTIC STRIP TEST SCH ×4 (05:51→21:24)
[2020-02-05] MEDS: INSULIN LISPRO 100 UNITS/ML SUBCUT SCH ×4 (05:51→21:25)
[2020-02-05 08:00] VITALS: BP 101/66
[2020-02-05] MEDS: ENOXAPARIN 30MG/0.3ML SYR SUBCUT SCH (08:40)
[2020-02-05 12:00] VITALS: BP 99/65
[2020-02-05 16:00] VITALS: BP 114/72
[2020-02-05 20:00] VITALS: BP 115/77
[2020-02-06] VITALS: BP 106/76
[2020-02-06] MEDS: ALBUTEROL 6.7GM HFA INHALER ORI SCH ×5 (00:15→23:41)
[2020-02-06 04:00] VITALS: BP 112/73
[2020-02-06] MEDS: SODIUM CHLORIDE 0.9% INJ 3ML FLUSH IVF SCH ×3 (05:14→21:42)
[2020-02-06] MEDS: BLOOD SUGAR DIAGNOSTIC STRIP TEST SCH ×4 (05:49→21:42)
[2020-02-06] MEDS: INSULIN LISPRO 100 UNITS/ML SUBCUT SCH ×4 (07:57→21:00)
[2020-02-06 08:05] LABS: BASOPHILS % 0.8 % (0.0-2.0); EOSINOPHILS % 2.6 % (0.0-5.0); LYMPHOCYTES % 26.1 % (20.0-50.0); MEAN CORPUSCULAR HEMOGLOBIN 28.1 pg (28.0-32.0); MEAN CORPUSCULAR VOLUME 84.8 fL (81.0-99.0); MEAN PLATELET VOLUME 7.7 fl (7.4-10.4); MONOCYTES % 12.4 % (2.0-8.0); NEUTROPHILS % 58.1 % (40.0-76.0); PLATELET 389 x1000/uL (130-400); RED BLOOD CELL COUNT 2.84 mill/uL (4.2-5.4); RED CELL DISTRIBUTION WIDTH 15.2 % (11.6-14.6)
[2020-02-06 08:37] LABS: PHOSPHORUS 6.9 mg/dL (2.5-4.9)
[2020-02-06 08:49] VITALS: BP 118/79
[2020-02-06] MEDS: ENOXAPARIN 30MG/0.3ML SYR SUBCUT SCH (09:26)
[2020-02-06 11:19] VITALS: BP 106/55
[2020-02-06 16:47] VITALS: BP 88/63
[2020-02-06] MEDS: SEVELAMER CARBONATE 800 MG TABLET PO SCH (18:22)
[2020-02-06 20:00] VITALS: BP 110/70
[2020-02-06] MEDS: EPOETIN ALFA 10000UNITS/ML VIAL SUBCUT SCH (21:42)
[2020-02-07] VITALS: BP 99/65
[2020-02-07] MEDS: ACETAMINOPHEN 325MG TABLET PO PRN ×2 (03:08→16:21)
[2020-02-07 04:00] VITALS: BP 123/73
[2020-02-07] MEDS: SODIUM CHLORIDE 0.9% INJ 3ML FLUSH IVF SCH ×3 (06:14→20:26)
[2020-02-07] MEDS: BLOOD SUGAR DIAGNOSTIC STRIP TEST SCH ×4 (06:14→20:16)
[2020-02-07] MEDS: ALBUTEROL 6.7GM HFA INHALER ORI SCH ×4 (06:14→23:16)
[2020-02-07] MEDS: INSULIN LISPRO 100 UNITS/ML SUBCUT SCH ×4 (06:48→20:26)
[2020-02-07 08:25] VITALS: BP 118/76
[2020-02-07] MEDS: SEVELAMER CARBONATE 800 MG TABLET PO SCH ×3 (09:30→17:42)
[2020-02-07] MEDS: ENOXAPARIN 30MG/0.3ML SYR SUBCUT SCH (09:31)
[2020-02-07 12:13] VITALS: BP 120/74
[2020-02-07 16:17] VITALS: BP 128/74
[2020-02-07 16:33] LABS: HEMATOCRIT. 23.3 % (36.0-48.0); HEMOGLOBIN. 7.8 g/dL (12.0-16.0); MEAN CORPUSCULAR HEMOGLOBIN 28.1 pg (28.0-32.0); MEAN CORPUSCULAR VOLUME 83.6 fL (81.0-99.0); MEAN PLATELET VOLUME 7.5 fl (7.4-10.4); PLATELET 335 x1000/uL (130-400); RED BLOOD CELL COUNT 2.78 mill/uL (4.2-5.4); RED CELL DISTRIBUTION WIDTH 15.7 % (11.6-14.6)
[2020-02-07 16:43] LABS: PHOSPHORUS 4.8 mg/dL (2.5-4.9)
[2020-02-07 19:05] LABS: PLATELET ESTIMATE NORMAL
[2020-02-07 20:00] VITALS: BP 117/72
[2020-02-08] VITALS (8 sets, daily range): BP systolic 111–145; BP diastolic 16–81
[2020-02-08] MEDS: SODIUM CHLORIDE 0.9% INJ 3ML FLUSH IVF SCH ×3 (05:13→21:24)
[2020-02-08] MEDS: ALBUTEROL 6.7GM HFA INHALER ORI SCH ×4 (05:13→23:30)
[2020-02-08] MEDS: BLOOD SUGAR DIAGNOSTIC STRIP TEST SCH ×4 (07:40→21:24)
[2020-02-08] MEDS: INSULIN LISPRO 100 UNITS/ML SUBCUT SCH ×4 (08:10→21:00)
[2020-02-08] MEDS: ENOXAPARIN 30MG/0.3ML SYR SUBCUT SCH (09:00)
[2020-02-08] MEDS: SEVELAMER CARBONATE 800 MG TABLET PO SCH ×3 (09:00→18:19)
[2020-02-09 04:00] VITALS: BP 120/78
[2020-02-09] MEDS: ALBUTEROL 6.7GM HFA INHALER ORI SCH ×3 (05:28→18:29)
[2020-02-09] MEDS: SODIUM CHLORIDE 0.9% INJ 3ML FLUSH IVF SCH ×3 (05:29→21:43)
[2020-02-09] MEDS: BLOOD SUGAR DIAGNOSTIC STRIP TEST SCH ×4 (06:33→21:44)
[2020-02-09 06:58] LABS: BASOPHILS % 0.6 % (0.0-2.0); EOSINOPHILS % 1.7 % (0.0-5.0); HEMATOCRIT. 23.8 % (36.0-48.0); HEMOGLOBIN. 7.9 g/dL (12.0-16.0); LYMPHOCYTES % 28.9 % (20.0-50.0); MEAN CORPUSCULAR HEMOGLOBIN 27.8 pg (28.0-32.0); MEAN CORPUSCULAR VOLUME 83.8 fL (81.0-99.0); MEAN PLATELET VOLUME 7.8 fl (7.4-10.4); MONOCYTES % 11.2 % (2.0-8.0); NEUTROPHILS % 57.6 % (40.0-76.0); PLATELET 345 x1000/uL (130-400); RED BLOOD CELL COUNT 2.84 mill/uL (4.2-5.4); RED CELL DISTRIBUTION WIDTH 15.1 % (11.6-14.6)
[2020-02-09] MEDS: INSULIN LISPRO 100 UNITS/ML SUBCUT SCH ×4 (07:37→21:00)
[2020-02-09 07:49] LABS: PHOSPHORUS 5.6 mg/dL (2.5-4.9)
[2020-02-09 08:00] VITALS: BP 106/70
[2020-02-09] MEDS: ENOXAPARIN 30MG/0.3ML SYR SUBCUT SCH (08:11)
[2020-02-09] MEDS: SEVELAMER CARBONATE 800 MG TABLET PO SCH ×3 (08:11→18:24)
[2020-02-09 12:00] VITALS: BP 124/72
[2020-02-09 16:00] VITALS: BP 133/77
[2020-02-09 20:00] VITALS: BP 122/71
[2020-02-09] MEDS: EPOETIN ALFA 10000UNITS/ML VIAL SUBCUT SCH (21:44)
[2020-02-10] VITALS: BP 139/88
[2020-02-10] MEDS: ALBUTEROL 6.7GM HFA INHALER ORI SCH ×4 (00:18→17:42)
[2020-02-10 04:00] VITALS: BP 101/55
[2020-02-10] MEDS: SODIUM CHLORIDE 0.9% INJ 3ML FLUSH IVF SCH ×3 (06:06→21:37)
[2020-02-10] MEDS: BLOOD SUGAR DIAGNOSTIC STRIP TEST SCH ×4 (07:59→21:37)
[2020-02-10 08:00] VITALS: BP 101/6
[2020-02-10] MEDS: ENOXAPARIN 30MG/0.3ML SYR SUBCUT SCH (08:00)
[2020-02-10] MEDS: SEVELAMER CARBONATE 800 MG TABLET PO SCH ×3 (08:00→18:20)
[2020-02-10] MEDS: INSULIN LISPRO 100 UNITS/ML SUBCUT SCH ×4 (08:01→21:00)
[2020-02-10 12:00] VITALS: BP 91/58
[2020-02-10 16:00] VITALS: BP 110/68
[2020-02-10 20:00] VITALS: BP 119/72
[2020-02-11] VITALS: BP 118/66
[2020-02-11 04:00] VITALS: BP 116/63
[2020-02-11 06:05] LABS: BASOPHILS % 0.9 % (0.0-2.0); EOSINOPHILS % 0.8 % (0.0-5.0); HEMATOCRIT. 23.6 % (36.0-48.0); HEMOGLOBIN. 7.7 g/dL (12.0-16.0); LYMPHOCYTES % 24.8 % (20.0-50.0); MEAN CORPUSCULAR HEMOGLOBIN 27.3 pg (28.0-32.0); MEAN CORPUSCULAR VOLUME 84.1 fL (81.0-99.0); MEAN PLATELET VOLUME 8.2 fl (7.4-10.4); MONOCYTES % 12.5 % (2.0-8.0); PLATELET 308 x1000/uL (130-400); RED BLOOD CELL COUNT 2.81 mill/uL (4.2-5.4); RED CELL DISTRIBUTION WIDTH 15.2 % (11.6-14.6)
[2020-02-11] MEDS: ALBUTEROL 6.7GM HFA INHALER ORI SCH ×4 (06:14→18:00)
[2020-02-11] MEDS: SODIUM CHLORIDE 0.9% INJ 3ML FLUSH IVF SCH ×3 (06:15→22:11)
[2020-02-11 06:22] LABS: PHOSPHORUS 4.5 mg/dL (2.5-4.9)
[2020-02-11] MEDS: BLOOD SUGAR DIAGNOSTIC STRIP TEST SCH ×4 (07:40→21:00)
[2020-02-11 08:00] VITALS: BP 95/70
[2020-02-11] MEDS: INSULIN LISPRO 100 UNITS/ML SUBCUT SCH ×4 (08:10→22:10)
[2020-02-11] MEDS: ENOXAPARIN 30MG/0.3ML SYR SUBCUT SCH (09:00)
[2020-02-11] MEDS: SEVELAMER CARBONATE 800 MG TABLET PO SCH ×3 (09:08→18:10)
[2020-02-11 12:00] VITALS: BP 137/65
[2020-02-11 16:00] VITALS: BP 94/67
[2020-02-11 20:00] VITALS: BP 100/64
[2020-02-11] MEDS: EPOETIN ALFA 10000UNITS/ML VIAL SUBCUT SCH (22:09)
[2020-02-12] VITALS: BP 101/69
[2020-02-12] MEDS: ALBUTEROL 6.7GM HFA INHALER ORI SCH ×3 (00:36→12:56)
[2020-02-12 04:00] VITALS: BP 99/63
[2020-02-12] MEDS: SODIUM CHLORIDE 0.9% INJ 3ML FLUSH IVF SCH ×2 (05:55→14:31)
[2020-02-12] MEDS: BLOOD SUGAR DIAGNOSTIC STRIP TEST SCH ×2 (06:03→12:33)
[2020-02-12 08:00] VITALS: BP 96/61
[2020-02-12] MEDS: INSULIN LISPRO 100 UNITS/ML SUBCUT SCH ×2 (08:01→13:32)
[2020-02-12] MEDS: SEVELAMER CARBONATE 800 MG TABLET PO SCH ×2 (08:02→13:31)
[2020-02-12] MEDS: ENOXAPARIN 30MG/0.3ML SYR SUBCUT SCH (08:02)
[2020-02-12 12:00] VITALS: BP 94/58
[2020-02-12 12:58] VITALS: BP 94/58
== END 2020-02-12 16:45 | disposition home or self-care (01) | DRG 720 ==
LOC: ER 11:22 → EDBEDREQ 15:37 → 7WST 01-27 01:27
PROVIDERS: ADMIT Internal Medicine; ATTEND Internal Medicine
PROC: 5A1D70Z Performance of Urinary Filtration, Intermittent, Less than 6 Hours Per Day (ICD-10-PCS; principal; 2020-01-27)
PROC: 5A1D70Z Performance of Urinary Filtration, Intermittent, Less than 6 Hours Per Day (ICD-10-PCS; 2020-01-28)
PROC: 5A1D70Z Performance of Urinary Filtration, Intermittent, Less than 6 Hours Per Day (ICD-10-PCS; 2020-01-31)
PROC: 5A1D70Z Performance of Urinary Filtration, Intermittent, Less than 6 Hours Per Day (ICD-10-PCS; 2020-02-02)
PROC: 5A1D70Z Performance of Urinary Filtration, Intermittent, Less than 6 Hours Per Day (ICD-10-PCS; 2020-02-03)
PROC: 5A1D70Z Performance of Urinary Filtration, Intermittent, Less than 6 Hours Per Day (ICD-10-PCS; 2020-02-05)
PROC: 5A1D70Z Performance of Urinary Filtration, Intermittent, Less than 6 Hours Per Day (ICD-10-PCS; 2020-02-08)
PROC: 5A1D70Z Performance of Urinary Filtration, Intermittent, Less than 6 Hours Per Day (ICD-10-PCS; 2020-02-10)
PROC: 5A1D70Z Performance of Urinary Filtration, Intermittent, Less than 6 Hours Per Day (ICD-10-PCS; 2020-02-12)
DX: A41.89 Other specified sepsis (principal); U07.1 COVID-19; J96.00 Acute respiratory failure, unspecified whether with hypoxia or hypercapnia; N18.6 End stage renal disease; E10.22 Type 1 diabetes mellitus with diabetic chronic kidney disease; E10.649 Type 1 diabetes mellitus with hypoglycemia without coma; E46 Unspecified protein-calorie malnutrition; I12.0 Hypertensive chronic kidney disease with stage 5 chronic kidney disease or end stage renal disease; D64.9 Anemia, unspecified; D72.819 Decreased white blood cell count, unspecified; J20.8 Acute bronchitis due to other specified organisms; N25.81 Secondary hyperparathyroidism of renal origin; Z79.4 Long term (current) use of insulin; Z86.73 Personal history of transient ischemic attack (TIA), and cerebral infarction without residual deficits; Z99.2 Dependence on renal dialysis; Z82.49 Family history of ischemic heart disease and other diseases of the circulatory system; Z83.3 Family history of diabetes mellitus; Z84.1 Family history of disorders of kidney and ureter; Z68.23 Body mass index [BMI] 23.0-23.9, adult; Z79.899 Other long term (current) drug therapy
CPT/HCPCS: 36415; 71045; 80048; 80053; 81003; 82962; 83036; 83735; 84100; 85025; 93005; 99285; J0456; J0885; J1644; J1650; J1815; J7060; C9803-CS; U0003-CS

== ENCOUNTER 2021-07-03 18:01 | Inpatient (IN) | payer BC, MEDICAID ==
[~2021-07-03] VITALS: Ht 157.5 cm; Wt 64.1 kg
[2021-07-03] MEDS ORDERED: LABETALOL 5MG/ML SYR 20 MG/4 ML SYRINGE IV ONE (18:15)
[2021-07-03] MEDS ORDERED: NICARDIPINE 50 MG in SODIUM CHLORIDE 0.9% 230 ML IV STA ×2 (18:30→18:45)
[2021-07-03] MEDS ORDERED: DEXAMETHASONE 10 MG/ML VIAL IV ONE (18:45)
[2021-07-03] MEDS ORDERED: LEVETIRACETAM 500MG PREMIX 100 ML IV ONE (18:45)
[2021-07-03] MEDS: MORPHINE SULFATE 2 MG/ML CPJ (NOT FOR IM USE) IV PRN (18:59)
[2021-07-03] MEDS ORDERED: NICARDIPINE 100 MG in SODIUM CHLORIDE 0.9% 60 ML IV PRN (19:00)
[2021-07-03] MEDS ORDERED: NICARDIPINE 50 MG in SODIUM CHLORIDE 0.9% 230 ML IV NR (19:00)
[2021-07-03 19:06] LABS: BASOPHILS % 0.6 % (0.0-2.0); HEMATOCRIT. 38.4 % (36.0-48.0); HEMOGLOBIN. 11.8 g/dL (12.0-16.0); LYMPHOCYTES % 21.8 % (20.0-50.0); MEAN CORPUSCULAR HEMOGLOBIN 28.8 pg (28.0-32.0); MEAN CORPUSCULAR VOLUME 93.5 fL (81.0-99.0); MEAN PLATELET VOLUME 7.7 fl (7.4-10.4); MONOCYTES % 10.6 % (2.0-8.0); PLATELET 234 x1000/uL (130-400); RED BLOOD CELL COUNT 4.11 mill/uL (4.2-5.4); RED CELL DISTRIBUTION WIDTH 15.3 % (11.6-14.6)
[2021-07-03 19:14] LABS: CHLORIDE 102 mEq/L (98-107)
[2021-07-03] MEDS ORDERED: DEXTROSE 50% WATER 50ML SYRINGE IV ONE (19:15)
[2021-07-03] MEDS ORDERED: CALCIUM CHLORIDE 1GM/10ML SYR IV ONE (19:15)
[2021-07-03] MEDS ORDERED: ALBUTEROL (0.083%) 2.5MG/3ML NEB HHN ONE (19:15)
[2021-07-03] MEDS ORDERED: SODIUM BICARBONATE 8.4% 1 MEQ/ML 50ML SYR IV ONE (19:15)
[2021-07-03] MEDS ORDERED: INSULIN REGULAR (HUMULIN R) 300UNITS/3ML VIAL IV ONE (19:15)
[2021-07-03 19:17] LABS: ETHANOL BLOOD < 10 mg/dL; PROTHROMBIN TIME 10.6 sec (9.6-11.0)
[2021-07-03 19:35] LABS: HCG SCREEN NEGATIVE
[2021-07-03 23:52] LABS: CLARITY URINE CLEAR (CLEAR); COLOR URINE YELLOW (YELLOW); KETONES URINE NEGATIVE (NEGATIVE); LEUKOCYTE ESTERASE URINE NEGATIVE (NEGATIVE); NITRITE URINE NEGATIVE (NEGATIVE); OCCULT BLOOD URINE NEGATIVE (NEGATIVE); PROTEIN URINE 3+ (NEGATIVE); SPECIFIC GRAVITY URINE 1.011 (1.005-1.030); UROBILINOGEN URINE 0.2 E.U./dL (0.2-1.0)
[2021-07-04] VITALS (87 sets, daily range): BP systolic 100–167; BP diastolic 43–106
[2021-07-04 00:10] LABS: *BARBITURATES SCREEN URINE NEGATIVE (NEGATIVE); *BENZODIAZEPINES SCREEN URINE NEGATIVE (NEGATIVE); *COCAINE SCREEN URINE NEGATIVE (NEGATIVE)
[2021-07-04 00:11] LABS: *AMPHETAMINES SCREEN URINE NEGATIVE (NEGATIVE); CANNABINOID URINE SCREEN NEGATIVE (NEGATIVE); METHADONE URINE SCREEN NEGATIVE (NEGATIVE); OPIATES URINE SCREEN NEGATIVE (NEGATIVE); PHENCYCLIDINE URINE SCREEN NEGATIVE (NEGATIVE)
[2021-07-04] MEDS ORDERED: NALOXONE HCL 0.4MG/ML VIAL IV PRN (00:30)
[2021-07-04] MEDS: NICARDIPINE 100 MG in SODIUM CHLORIDE 0.9% 60 ML IV PRN ×2 (00:39→17:49)
[2021-07-04] MEDS: DEXAMETHASONE 4MG/ML 1ML VIAL IV SCH ×4 (00:57→17:49)
[2021-07-04 05:47] LABS: HEMATOCRIT. 38.6 % (36.0-48.0); HEMOGLOBIN. 12.1 g/dL (12.0-16.0); MEAN CORPUSCULAR HEMOGLOBIN 28.8 pg (28.0-32.0); MEAN PLATELET VOLUME 8.1 fl (7.4-10.4); PLATELET 235 x1000/uL (130-400); RED CELL DISTRIBUTION WIDTH 15.6 % (11.6-14.6)
[2021-07-04] MEDS: MORPHINE SULFATE 2 MG/ML CPJ (NOT FOR IM USE) IV PRN (06:19)
[2021-07-04] MEDS ORDERED: DEXTROSE 50% WATER 50ML SYRINGE IV PRN (08:00)
[2021-07-04] MEDS ORDERED: LEVETIRACETAM 500MG PREMIX 100 ML IV SCH (09:00)
[2021-07-04] MEDS: PANTOPRAZOLE SODIUM 40 MG/VIAL IV SCH (09:09)
[2021-07-04] MEDS ORDERED: INSULIN REGULAR (HUMULIN R) 300UNITS/3ML VIAL IV NR ×2 (09:15→11:00)
[2021-07-04] MEDS ORDERED: SODIUM BICARBONATE 8.4% 1 MEQ/ML 50ML SYR IV NR ×2 (09:15→11:00)
[2021-07-04] MEDS ORDERED: SODIUM POLYSTYRENE SULFONATE 15 G/60 ML BOT PR NR ×2 (09:15→11:00)
[2021-07-04] MEDS ORDERED: DEXTROSE 50% WATER 50ML SYRINGE IV NR ×2 (09:15→11:00)
[2021-07-04] MEDS ORDERED: FUROSEMIDE 100MG/10ML VIAL IVP NR ×2 (09:15→11:00)
[2021-07-04] MEDS: LEVETIRACETAM 500MG PREMIX 100 ML IV SCH ×2 (09:40→21:38)
[2021-07-04] MEDS ORDERED: INSULIN GLARGINE UD 100 UNITS/ML SYR SUBCUT SCH (10:00)
[2021-07-04] MEDS: BLOOD SUGAR DIAGNOSTIC STRIP TEST SCH ×2 (12:24→17:08)
[2021-07-04 12:25] LABS: HEPATITIS B SURFACE ANTIGEN NEGATIVE
[2021-07-04] MEDS: INSULIN LISPRO 100 UNITS/ML SUBCUT SCH ×2 (12:25→17:08)
[2021-07-04 14:06] LABS: PLATELET ESTIMATE NORMAL
[2021-07-04] MEDS ORDERED: IPRATROPIUM/ALBUTEROL 0.5-3(2.5)MG/3ML NEB HHN PRN (20:00)
[2021-07-05] VITALS (56 sets, daily range): BP systolic 102–169; BP diastolic 51–99
[2021-07-05] MEDS: DEXAMETHASONE 4MG/ML 1ML VIAL IV SCH ×5 (00:57→23:26)
[2021-07-05] MEDS: BLOOD SUGAR DIAGNOSTIC STRIP TEST SCH ×5 (00:57→23:30)
[2021-07-05 05:23] LABS: HEMATOCRIT. 33.6 % (36.0-48.0); HEMOGLOBIN. 10.6 g/dL (12.0-16.0); MEAN CORPUSCULAR HEMOGLOBIN 28.7 pg (28.0-32.0); MEAN CORPUSCULAR VOLUME 90.7 fL (81.0-99.0); MEAN PLATELET VOLUME 8.1 fl (7.4-10.4); PLATELET 253 x1000/uL (130-400); RED BLOOD CELL COUNT 3.71 mill/uL (4.2-5.4); RED CELL DISTRIBUTION WIDTH 15.7 % (11.6-14.6)
[2021-07-05 05:35] LABS: PHOSPHORUS 7.4 mg/dL (2.5-4.9)
[2021-07-05] MEDS: HYDRALAZINE 20MG/ML VIAL IV PRN ×3 (06:02→17:18)
[2021-07-05] MEDS: INSULIN LISPRO 100 UNITS/ML SUBCUT SCH ×5 (06:03→23:30)
[2021-07-05] MEDS: LEVETIRACETAM 500MG PREMIX 100 ML IV SCH ×2 (08:06→21:23)
[2021-07-05] MEDS: PANTOPRAZOLE SODIUM 40 MG/VIAL IV SCH (08:06)
[2021-07-05 08:20] LABS: PLATELET ESTIMATE NORMAL
[2021-07-05 15:16] LABS: CLARITY URINE CLOUDY (CLEAR); COLOR URINE YELLOW (YELLOW); KETONES URINE NEGATIVE (NEGATIVE); LEUKOCYTE ESTERASE URINE 3+ (NEGATIVE); NITRITE URINE NEGATIVE (NEGATIVE); OCCULT BLOOD URINE 2+ (NEGATIVE); PH URINE 5.5 (4.5-8.0); PROTEIN URINE 3+ (NEGATIVE); SPECIFIC GRAVITY URINE 1.014 (1.005-1.030); UROBILINOGEN URINE 0.2 E.U./dL (0.2-1.0)
[2021-07-05] MEDS: MORPHINE SULFATE 2 MG/ML CPJ (NOT FOR IM USE) IV PRN (18:06)
[2021-07-06] VITALS (28 sets, daily range): BP systolic 115–152; BP diastolic 42–82
[2021-07-06 05:37] LABS: HEMATOCRIT. 33.6 % (36.0-48.0); HEMOGLOBIN. 10.6 g/dL (12.0-16.0); MEAN CORPUSCULAR HEMOGLOBIN 28.8 pg (28.0-32.0); MEAN CORPUSCULAR VOLUME 91.4 fL (81.0-99.0); MEAN PLATELET VOLUME 8.2 fl (7.4-10.4); PLATELET 238 x1000/uL (130-400); RED BLOOD CELL COUNT 3.67 mill/uL (4.2-5.4); RED CELL DISTRIBUTION WIDTH 15.4 % (11.6-14.6)
[2021-07-06] MEDS: DEXAMETHASONE 4MG/ML 1ML VIAL IV SCH ×2 (06:07→12:40)
[2021-07-06] MEDS: BLOOD SUGAR DIAGNOSTIC STRIP TEST SCH ×3 (06:12→18:00)
[2021-07-06] MEDS: INSULIN LISPRO 100 UNITS/ML SUBCUT SCH ×3 (06:15→18:11)
[2021-07-06] MEDS ORDERED: ENALAPRIL 2.5MG/2ML VIAL 2ML IV PRN (07:00)
[2021-07-06] MEDS: LEVETIRACETAM 500MG PREMIX 100 ML IV SCH (08:39)
[2021-07-06] MEDS: PANTOPRAZOLE SODIUM 40 MG/VIAL IV SCH (08:39)
[2021-07-06 10:25] LABS: PLATELET ESTIMATE NORMAL
[2021-07-06] MEDS: HYDRALAZINE 10 MG in SODIUM CHLORIDE 0.9% 49.5 ML IV PRN (14:04)
[2021-07-06] MEDS ORDERED: CEFTRIAXONE 1 G PREMIX 50 ML IV SCH (17:00)
[2021-07-06] MEDS ORDERED: AMLODIPINE 5MG TABLET PO NR (17:30)
[2021-07-06] MEDS: CEFTRIAXONE 1,000 MG in DEXTROSE 5% WATER 50 ML IV SCH (22:11)
[2021-07-07] VITALS: BP 139/83
[2021-07-07] MEDS: LEVETIRACETAM 500MG PREMIX 100 ML IV SCH ×3 (00:07→20:39)
[2021-07-07] MEDS: AMLODIPINE 5MG TABLET PO SCH ×2 (00:10→23:55)
[2021-07-07] MEDS: BLOOD SUGAR DIAGNOSTIC STRIP TEST SCH ×4 (00:28→23:55)
[2021-07-07 04:00] VITALS: BP 130/76
[2021-07-07] MEDS: INSULIN LISPRO 100 UNITS/ML SUBCUT SCH ×4 (06:00→23:55)
[2021-07-07 08:00] VITALS: BP 133/76
[2021-07-07] MEDS: FAMOTIDINE 20MG/2ML VIAL IV SCH (08:32)
[2021-07-07 15:12] LABS: BASOPHILS % 0.2 % (0.0-2.0); EOSINOPHILS % 0.3 % (0.0-5.0); HEMATOCRIT. 38.9 % (36.0-48.0); LYMPHOCYTES % 12.3 % (20.0-50.0); MEAN CORPUSCULAR HEMOGLOBIN 28.2 pg (28.0-32.0); MEAN CORPUSCULAR VOLUME 91.1 fL (81.0-99.0); MEAN PLATELET VOLUME 8.2 fl (7.4-10.4); MONOCYTES % 11.2 % (2.0-8.0); PLATELET 229 x1000/uL (130-400); RED BLOOD CELL COUNT 4.27 mill/uL (4.2-5.4); RED CELL DISTRIBUTION WIDTH 15.6 % (11.6-14.6)
[2021-07-07 15:20] LABS: PHOSPHORUS 7.1 mg/dL (2.5-4.9)
[2021-07-07 16:00] VITALS: BP 118/66
[2021-07-07] MEDS: CEFTRIAXONE 1,000 MG in DEXTROSE 5% WATER 50 ML IV SCH (20:39)
[2021-07-07 21:11] VITALS: BP 143/83
[2021-07-08] VITALS: BP 153/87
[2021-07-08 05:18] VITALS: BP 149/84
[2021-07-08] MEDS: BLOOD SUGAR DIAGNOSTIC STRIP TEST SCH ×3 (05:52→18:00)
[2021-07-08] MEDS: INSULIN LISPRO 100 UNITS/ML SUBCUT SCH ×3 (06:00→18:00)
[2021-07-08 08:00] VITALS: BP 169/85
[2021-07-08 08:49] LABS: BASOPHILS % 0.1 % (0.0-2.0); EOSINOPHILS % 1.1 % (0.0-5.0); HEMATOCRIT. 38.8 % (36.0-48.0); HEMOGLOBIN. 12.3 g/dL (12.0-16.0); LYMPHOCYTES % 16.5 % (20.0-50.0); MEAN CORPUSCULAR HEMOGLOBIN 29.1 pg (28.0-32.0); MEAN CORPUSCULAR VOLUME 91.7 fL (81.0-99.0); MEAN PLATELET VOLUME 8.3 fl (7.4-10.4); MONOCYTES % 12.1 % (2.0-8.0); NEUTROPHILS % 70.2 % (40.0-76.0); PLATELET 204 x1000/uL (130-400); RED BLOOD CELL COUNT 4.23 mill/uL (4.2-5.4); RED CELL DISTRIBUTION WIDTH 14.9 % (11.6-14.6)
[2021-07-08 10:04] LABS: PHOSPHORUS 8.4 mg/dL (2.5-4.9)
[2021-07-08] MEDS: FAMOTIDINE 20MG/2ML VIAL IV SCH (10:25)
[2021-07-08] MEDS: LEVETIRACETAM 500MG PREMIX 100 ML IV SCH ×2 (10:25→22:51)
[2021-07-08 12:00] VITALS: BP 125/85
[2021-07-08] MEDS ORDERED: AMPICILLIN 1,000 MG in SODIUM CHLORIDE 0.9% 50 ML IV SCH (13:30)
[2021-07-08] MEDS: AMPICILLIN 2000MG in SODIUM CHLORIDE 0.9% 100ML IV SCH (15:48)
[2021-07-08 16:00] VITALS: BP 148/89
[2021-07-08] MEDS: CALCIUM ACETATE 667MG CAPSULE PO SCH (18:01)
[2021-07-08 20:00] VITALS: BP 147/91
[2021-07-08] MEDS: AMLODIPINE 5MG TABLET PO SCH (22:51)
[2021-07-09] VITALS: BP 145/91
[2021-07-09] MEDS: BLOOD SUGAR DIAGNOSTIC STRIP TEST SCH ×4 (00:33→17:17)
[2021-07-09 04:00] VITALS: BP 139/84
[2021-07-09] MEDS: INSULIN LISPRO 100 UNITS/ML SUBCUT SCH ×4 (06:00→17:18)
[2021-07-09 08:00] VITALS: BP 152/102
[2021-07-09] MEDS: LEVETIRACETAM 500MG PREMIX 100 ML IV SCH ×2 (08:28→22:05)
[2021-07-09] MEDS: CALCIUM ACETATE 667MG CAPSULE PO SCH ×3 (08:29→17:18)
[2021-07-09] MEDS: FAMOTIDINE 20MG/2ML VIAL IV SCH (08:29)
[2021-07-09 12:00] VITALS: BP 145/86
[2021-07-09] MEDS: AMPICILLIN 2000MG in SODIUM CHLORIDE 0.9% 100ML IV SCH (14:54)
[2021-07-09 16:00] VITALS: BP 134/82
[2021-07-09 17:50] LABS: BASOPHILS % 0.2 % (0.0-2.0); EOSINOPHILS % 1.9 % (0.0-5.0); HEMATOCRIT. 37.1 % (36.0-48.0); HEMOGLOBIN. 11.7 g/dL (12.0-16.0); LYMPHOCYTES % 17.1 % (20.0-50.0); MEAN CORPUSCULAR HEMOGLOBIN 28.2 pg (28.0-32.0); MEAN CORPUSCULAR VOLUME 89.7 fL (81.0-99.0); MEAN PLATELET VOLUME 8.5 fl (7.4-10.4); NEUTROPHILS % 70.8 % (40.0-76.0); PLATELET 213 x1000/uL (130-400); RED BLOOD CELL COUNT 4.14 mill/uL (4.2-5.4); RED CELL DISTRIBUTION WIDTH 15.1 % (11.6-14.6)
[2021-07-09 20:00] VITALS: BP 145/81
[2021-07-09] MEDS: AMLODIPINE 5MG TABLET PO SCH (22:06)
[2021-07-10] VITALS: BP 152/85
[2021-07-10 04:00] VITALS: BP 140/83
[2021-07-10] MEDS: INSULIN LISPRO 100 UNITS/ML SUBCUT SCH ×4 (06:00→17:54)
[2021-07-10] MEDS: FAMOTIDINE 20MG TABLET PO SCH (06:20)
[2021-07-10] MEDS: BLOOD SUGAR DIAGNOSTIC STRIP TEST SCH ×3 (06:20→17:52)
[2021-07-10 07:20] LABS: BASOPHILS % 0.2 % (0.0-2.0); EOSINOPHILS % 3.7 % (0.0-5.0); HEMATOCRIT. 36.1 % (36.0-48.0); HEMOGLOBIN. 11.5 g/dL (12.0-16.0); MEAN CORPUSCULAR HEMOGLOBIN 28.7 pg (28.0-32.0); MEAN CORPUSCULAR VOLUME 89.8 fL (81.0-99.0); MEAN PLATELET VOLUME 8.6 fl (7.4-10.4); MONOCYTES % 9.4 % (2.0-8.0); NEUTROPHILS % 66.7 % (40.0-76.0); PLATELET 211 x1000/uL (130-400); RED BLOOD CELL COUNT 4.03 mill/uL (4.2-5.4); RED CELL DISTRIBUTION WIDTH 14.7 % (11.6-14.6)
[2021-07-10 08:00] VITALS: BP 139/88
[2021-07-10] MEDS: CALCIUM ACETATE 667MG CAPSULE PO SCH ×4 (08:38→17:17)
[2021-07-10 09:21] LABS: PHOSPHORUS 9.2 mg/dL (2.5-4.9)
[2021-07-10] MEDS: LEVETIRACETAM 500MG PREMIX 100 ML IV SCH ×2 (09:23→23:36)
[2021-07-10 12:00] VITALS: BP 150/88
[2021-07-10] MEDS: AMPICILLIN 2000MG in SODIUM CHLORIDE 0.9% 100ML IV SCH (14:58)
[2021-07-10 16:00] VITALS: BP 161/81
[2021-07-10 20:00] VITALS: BP 176/91
[2021-07-10] MEDS ORDERED: AMLODIPINE 10MG TABLET PO SCH (21:00)
[2021-07-11] VITALS: BP 185/87
[2021-07-11 04:00] VITALS: BP 172/90
[2021-07-11] MEDS: BLOOD SUGAR DIAGNOSTIC STRIP TEST SCH ×5 (06:00→20:16)
[2021-07-11] MEDS: INSULIN LISPRO 100 UNITS/ML SUBCUT SCH ×5 (06:00→20:22)
[2021-07-11] MEDS: FAMOTIDINE 20MG TABLET PO SCH ×2 (07:23→20:19)
[2021-07-11 07:29] LABS: BASOPHILS % 0.3 % (0.0-2.0); EOSINOPHILS % 3.6 % (0.0-5.0); HEMATOCRIT. 35.4 % (36.0-48.0); HEMOGLOBIN. 11.3 g/dL (12.0-16.0); LYMPHOCYTES % 15.1 % (20.0-50.0); MEAN CORPUSCULAR HEMOGLOBIN 28.9 pg (28.0-32.0); MEAN CORPUSCULAR VOLUME 90.5 fL (81.0-99.0); MEAN PLATELET VOLUME 9.1 fl (7.4-10.4); MONOCYTES % 7.5 % (2.0-8.0); NEUTROPHILS % 73.5 % (40.0-76.0); PLATELET 198 x1000/uL (130-400); RED BLOOD CELL COUNT 3.91 mill/uL (4.2-5.4); RED CELL DISTRIBUTION WIDTH 14.5 % (11.6-14.6)
[2021-07-11 07:39] LABS: CHLORIDE 101 mEq/L (98-107)
[2021-07-11 08:00] VITALS: BP 156/94
[2021-07-11 08:18] LABS: PHOSPHORUS 9.7 mg/dL (2.5-4.9)
[2021-07-11] MEDS: CALCIUM ACETATE 667MG CAPSULE PO SCH ×3 (09:09→17:44)
[2021-07-11] MEDS: LEVETIRACETAM 500MG PREMIX 100 ML IV SCH ×2 (09:09→20:54)
[2021-07-11 12:00] VITALS: BP 156/77
[2021-07-11] MEDS ORDERED: DIPHENHYDRAMINE 25MG CAPSULE PO PRN ×2 (12:45)
[2021-07-11] MEDS: AMPICILLIN 2000MG in SODIUM CHLORIDE 0.9% 100ML IV SCH (15:37)
[2021-07-11 16:00] VITALS: BP 176/101
[2021-07-11] MEDS: AMLODIPINE 5MG TABLET PO SCH (16:00)
[2021-07-11 20:00] VITALS: BP 173/97
[2021-07-11] MEDS ORDERED: METOPROLOL TARTRATE 25MG TABLET PO SCH (21:00)
[2021-07-12] VITALS: BP 156/85
[2021-07-12 04:00] VITALS: BP 156/69
[2021-07-12] MEDS: BLOOD SUGAR DIAGNOSTIC STRIP TEST SCH ×3 (05:36→18:05)
[2021-07-12] MEDS: INSULIN LISPRO 100 UNITS/ML SUBCUT SCH ×3 (06:00→18:00)
[2021-07-12] MEDS: CALCIUM ACETATE 667MG CAPSULE PO SCH ×3 (07:50→18:28)
[2021-07-12 07:59] VITALS: BP 151/85
[2021-07-12] MEDS: AMLODIPINE 5MG TABLET PO SCH ×2 (09:00→15:53)
[2021-07-12] MEDS: HYDRALAZINE 10 MG in SODIUM CHLORIDE 0.9% 49.5 ML IV PRN (10:23)
[2021-07-12] MEDS: LEVETIRACETAM 500MG PREMIX 100 ML IV SCH ×2 (10:24→22:31)
[2021-07-12 11:41] LABS: BASOPHILS % 0.6 % (0.0-2.0); EOSINOPHILS % 3.8 % (0.0-5.0); HEMATOCRIT. 41.2 % (36.0-48.0); HEMOGLOBIN. 12.9 g/dL (12.0-16.0); LYMPHOCYTES % 13.8 % (20.0-50.0); MEAN CORPUSCULAR HEMOGLOBIN 28.7 pg (28.0-32.0); MEAN CORPUSCULAR VOLUME 91.7 fL (81.0-99.0); MONOCYTES % 9.1 % (2.0-8.0); NEUTROPHILS % 72.7 % (40.0-76.0); PLATELET 214 x1000/uL (130-400); RED CELL DISTRIBUTION WIDTH 14.8 % (11.6-14.6)
[2021-07-12 12:00] VITALS: BP 128/78
[2021-07-12 12:04] LABS: PHOSPHORUS 6.8 mg/dL (2.5-4.9)
[2021-07-12] MEDS: LOSARTAN POTASSIUM 100 MG TABLET PO SCH (13:20)
[2021-07-12] MEDS ORDERED: CARV25TA47 MT (13:54)
[2021-07-12] MEDS: AMPICILLIN 2000MG in SODIUM CHLORIDE 0.9% 100ML IV SCH (15:35)
[2021-07-12 16:00] VITALS: BP 143/83
[2021-07-12 20:00] VITALS: BP 152/87
[2021-07-12] MEDS: METOPROLOL TARTRATE 50MG TABLET PO SCH (20:47)
[2021-07-13] VITALS (21 sets, daily range): BP systolic 122–164; BP diastolic 72–90
[2021-07-13] MEDS: BLOOD SUGAR DIAGNOSTIC STRIP TEST SCH ×2 (00:13→12:00)
[2021-07-13] MEDS ORDERED: CLONIDINE 0.1MG TABLET PO PRN (00:30)
[2021-07-13] MEDS: FAMOTIDINE 20MG TABLET PO SCH (07:20)
[2021-07-13] MEDS ORDERED: HEPARIN 1000 UNITS/ML 10ML ONE (07:23)
[2021-07-13] MEDS ORDERED: FENTANYL CITRATE/PF 50MCG/ML 2ML VIAL ONE (07:23)
[2021-07-13] MEDS ORDERED: LIDOCAINE HCL 1% 20ML VIAL (Pyxis) INJ ONE (07:23)
[2021-07-13] MEDS: CALCIUM ACETATE 667MG CAPSULE PO SCH ×2 (07:50→13:36)
[2021-07-13 07:51] LABS: PHOSPHORUS 6.8 mg/dL (2.5-4.9)
[2021-07-13] MEDS ORDERED: FENTANYL CITRATE/PF 50MCG/ML 2ML VIAL IV SCH (08:15)
[2021-07-13] MEDS: AMLODIPINE 5MG TABLET PO SCH (09:00)
[2021-07-13] MEDS: LEVETIRACETAM 500MG PREMIX 100 ML IV SCH (09:00)
[2021-07-13] MEDS: METOPROLOL TARTRATE 50MG TABLET PO SCH (09:00)
[2021-07-13] MEDS: LOSARTAN POTASSIUM 100 MG TABLET PO SCH (09:00)
[2021-07-13 09:09] LABS: BASOPHILS % 0.7 % (0.0-2.0); EOSINOPHILS % 4.3 % (0.0-5.0); HEMATOCRIT. 36.3 % (36.0-48.0); HEMOGLOBIN. 11.6 g/dL (12.0-16.0); LYMPHOCYTES % 15.6 % (20.0-50.0); MEAN CORPUSCULAR HEMOGLOBIN 28.7 pg (28.0-32.0); MEAN CORPUSCULAR VOLUME 89.7 fL (81.0-99.0); MEAN PLATELET VOLUME 8.8 fl (7.4-10.4); MONOCYTES % 11.1 % (2.0-8.0); NEUTROPHILS % 68.3 % (40.0-76.0); PLATELET 211 x1000/uL (130-400); RED BLOOD CELL COUNT 4.04 mill/uL (4.2-5.4); RED CELL DISTRIBUTION WIDTH 14.4 % (11.6-14.6)
[2021-07-13] MEDS: INSULIN LISPRO 100 UNITS/ML SUBCUT SCH ×2 (12:00)
[2021-07-13] MEDS: AMPICILLIN 2000MG in SODIUM CHLORIDE 0.9% 100ML IV SCH (15:00)
== END 2021-07-13 16:05 | disposition home health service (06) | DRG 44 ==
LOC: ER 18:01 → MICUSO 19:20 → ENRESERV 23:23 → 6EST 07-06 11:08
PROVIDERS: ADMIT Internal Medicine; ATTEND Internal Medicine
PROC: 02HV33Z Insertion of Infusion Device into Superior Vena Cava, Percutaneous Approach (ICD-10-PCS; 2021-07-04)
PROC: 5A1D70Z Performance of Urinary Filtration, Intermittent, Less than 6 Hours Per Day (ICD-10-PCS; 2021-07-04)
PROC: 5A1D70Z Performance of Urinary Filtration, Intermittent, Less than 6 Hours Per Day (ICD-10-PCS; 2021-07-06)
PROC: 5A1D70Z Performance of Urinary Filtration, Intermittent, Less than 6 Hours Per Day (ICD-10-PCS; 2021-07-08)
PROC: 5A1D70Z Performance of Urinary Filtration, Intermittent, Less than 6 Hours Per Day (ICD-10-PCS; 2021-07-11)
PROC: 4A10X4Z Monitoring of Central Nervous Electrical Activity, External Approach (ICD-10-PCS; principal; 2021-07-12)
PROC: 02PYX3Z Removal of Infusion Device from Great Vessel, External Approach (ICD-10-PCS; 2021-07-13)
PROC: 0JH63XZ Insertion of Tunneled Vascular Access Device into Chest Subcutaneous Tissue and Fascia, Percutaneous Approach (ICD-10-PCS; 2021-07-13)
PROC: 02H633Z Insertion of Infusion Device into Right Atrium, Percutaneous Approach (ICD-10-PCS; 2021-07-13)
PROC: B518ZZA Fluoroscopy of Superior Vena Cava, Guidance (ICD-10-PCS; 2021-07-13)
PROC: 5A1D70Z Performance of Urinary Filtration, Intermittent, Less than 6 Hours Per Day (ICD-10-PCS; 2021-07-13)
DX: I61.0 Nontraumatic intracerebral hemorrhage in hemisphere, subcortical (principal); G93.6 Cerebral edema; G93.40 Encephalopathy, unspecified; E87.1 Hypo-osmolality and hyponatremia; G81.91 Hemiplegia, unspecified affecting right dominant side; D64.9 Anemia, unspecified; E11.22 Type 2 diabetes mellitus with diabetic chronic kidney disease; I12.0 Hypertensive chronic kidney disease with stage 5 chronic kidney disease or end stage renal disease; R47.01 Aphasia; E21.1 Secondary hyperparathyroidism, not elsewhere classified; E87.5 Hyperkalemia; N18.6 End stage renal disease; I16.1 Hypertensive emergency; R47.1 Dysarthria and anarthria; F17.200 Nicotine dependence, unspecified, uncomplicated; R29.810 Facial weakness; G81.94 Hemiplegia, unspecified affecting left nondominant side; N39.0 Urinary tract infection, site not specified; Z20.822 Contact with and (suspected) exposure to COVID-19; R13.10 Dysphagia, unspecified; R26.89 Other abnormalities of gait and mobility; Z99.2 Dependence on renal dialysis; Z84.1 Family history of disorders of kidney and ureter; Z86.16 Personal history of COVID-19; Z86.73 Personal history of transient ischemic attack (TIA), and cerebral infarction without residual deficits; Z79.4 Long term (current) use of insulin; Z82.49 Family history of ischemic heart disease and other diseases of the circulatory system; Z83.3 Family history of diabetes mellitus
CPT/HCPCS: 36415; 36558; 36589; 70544; 70551; 71045; 76937; 77001; 80048; 80053; 80305; 80320; 81003; 82040; 82247; 82962; 83036; 83735; 84075; 84100; 84145; 84155; 84450; 84460; 84484; 84703; 85025; 86705; 86709; 86803; 86850; 86900; 87077; 87186; 87340; 87426; 92523; 92610; 93005; 93306; 94640; 97112; 97116; 97162; 97166; 99152; 99153; 99291; C1750; C1752; C1769; C1887; C1893; C9113; J0290; J0360; J0696; J1100; J1644; J1815; J1940; J1953; J2270; J3010; J3490; J7040; J7050; J7060; Q0163; G0480; G0500

== ENCOUNTER 2022-05-09 17:39 | Inpatient (IN) | payer BC, MEDICAID ==
[~2022-05-09] VITALS: Ht 170.2 cm; Wt 52.6 kg
[~2022-05-09 17:39] MED LIST changes: +CARV25TA47 MT
[2022-05-09 20:06] LABS: BASOPHILS % 0.7 % (0.0-2.0); LYMPHOCYTES % 13.5 % (20.0-50.0); MEAN CORPUSCULAR HEMOGLOBIN 32.3 pg (28.0-32.0); MEAN CORPUSCULAR VOLUME 101.4 fL (81.0-99.0); MEAN PLATELET VOLUME 8.4 fl (7.4-10.4); MONOCYTES % 4.7 % (2.0-8.0); NEUTROPHILS % 80.1 % (40.0-76.0); PLATELET 208 x1000/uL (130-400); RED BLOOD CELL COUNT 1.64 mill/uL (4.2-5.4); RED CELL DISTRIBUTION WIDTH 15.7 % (11.6-14.6)
[2022-05-09 20:11] LABS: HEMATOCRIT. 16.7 % (36.0-48.0); HEMOGLOBIN. 5.3 g/dL (12.0-16.0)
[2022-05-09 20:20] LABS: CHLORIDE 100 mEq/L (98-107)
[2022-05-09 20:22] LABS: HCG SCREEN NEGATIVE
[2022-05-09] MEDS ORDERED: SODIUM BICARBONATE 8.4% 1 MEQ/ML 50ML SYR IV ONE (20:45)
[2022-05-09] MEDS ORDERED: ALBUTEROL (0.083%) 2.5MG/3ML NEB HHN ONE (20:45)
[2022-05-09] MEDS ORDERED: DEXTROSE 50% WATER 50ML SYRINGE IV ONE (20:45)
[2022-05-09] MEDS ORDERED: SODIUM POLYSTYRENE SULFONATE 15 G/60 ML BOT PO ONE (20:45)
[2022-05-09] MEDS ORDERED: INSULIN REGULAR (HUMULIN R) 300UNITS/3ML VIAL IV ONE (20:45)
[2022-05-09 20:54] LABS: PARTIAL THROMBOPLASTIN TIME 25.4 sec (23.4-31.0); PROTHROMBIN TIME 11.1 sec (9.6-11.0)
[2022-05-09] MEDS ORDERED: ACETAMINOPHEN 325MG TABLET PO ONE (23:00)
[2022-05-10] MEDS ORDERED: HYDRALAZINE 20MG/ML VIAL IV PRN (08:45)
[2022-05-10 09:53] LABS: HEMATOCRIT. 23.8 % (36.0-48.0); MEAN CORPUSCULAR HEMOGLOBIN 31.6 pg (28.0-32.0); MEAN CORPUSCULAR VOLUME 93.7 fL (81.0-99.0); MEAN PLATELET VOLUME 7.9 fl (7.4-10.4); PLATELET 188 x1000/uL (130-400); RED BLOOD CELL COUNT 2.55 mill/uL (4.2-5.4); RED CELL DISTRIBUTION WIDTH 15.5 % (11.6-14.6)
[2022-05-10 10:41] LABS: PLATELET ESTIMATE NORMAL
[2022-05-10 11:46] VITALS: BP 151/76
[2022-05-10] MEDS ORDERED: ONDANSETRON HCL 4MG/2ML INJ IV PRN (14:45)
[2022-05-10] MEDS: ACETAMINOPHEN 325MG TABLET PO PRN (15:58)
[2022-05-10] MEDS: AMLODIPINE 10MG TABLET PO SCH (15:58)
[2022-05-10 16:00] VITALS: BP 172/89
[2022-05-10 17:50] VITALS: BP 145/55
[2022-05-10] MEDS ORDERED: HYDRALAZINE HCL 100MG TABLET PO NR (18:14)
[2022-05-10 19:42] LABS: TOTAL IRON BINDING CAPACITY 202 ug/dL (250-450)
[2022-05-10 19:51] LABS: FERRITIN 657 ng/mL (10-291)
[2022-05-10 19:58] LABS: HEPATITIS B SURFACE ANTIGEN NEGATIVE
[2022-05-10 20:00] VITALS: BP 141/62
[2022-05-10] MEDS: EPOETIN ALFA-EPBX 4,000 UNIT/ML VIAL SUBCUT SCH (21:20)
[2022-05-10] MEDS: HYDRALAZINE HCL 100MG TABLET PO SCH (21:21)
[2022-05-11] VITALS: BP 135/65
[2022-05-11 04:00] VITALS: BP 128/68
[2022-05-11] MEDS: HYDRALAZINE HCL 100MG TABLET PO SCH ×3 (06:20→22:00)
[2022-05-11 08:00] VITALS: BP 131/78
[2022-05-11] MEDS: AMLODIPINE 10MG TABLET PO SCH (08:12)
[2022-05-11] MEDS: DIPHENHYDRAMINE 50MG CAPSULE PO PRN ×3 (08:18→20:45)
[2022-05-11 10:26] LABS: MEAN CORPUSCULAR HEMOGLOBIN 31.7 pg (28.0-32.0); MEAN CORPUSCULAR VOLUME 95.1 fL (81.0-99.0); MEAN PLATELET VOLUME 7.6 fl (7.4-10.4); PLATELET 205 x1000/uL (130-400); RED BLOOD CELL COUNT 2.09 mill/uL (4.2-5.4); RED CELL DISTRIBUTION WIDTH 15.8 % (11.6-14.6)
[2022-05-11 10:29] LABS: PROTHROMBIN TIME 10.6 sec (9.6-11.0)
[2022-05-11 10:39] LABS: HEMOGLOBIN. 6.6 g/dL (12.0-16.0)
[2022-05-11 10:40] LABS: HEMATOCRIT. 19.9 % (36.0-48.0)
[2022-05-11 13:57] LABS: NUCLEATED RED BLOOD CELLS 1 /100 WBC; PLATELET ESTIMATE NORMAL
[2022-05-11] MEDS: ACETAMINOPHEN 325MG TABLET PO PRN (15:00)
[2022-05-11 16:00] VITALS: BP 139/71
[2022-05-11 20:00] VITALS: BP 153/77
[2022-05-12] VITALS: BP 144/82
[2022-05-12 04:00] VITALS: BP 159/79
[2022-05-12] MEDS: HYDRALAZINE HCL 100MG TABLET PO SCH ×3 (06:14→22:25)
[2022-05-12 07:46] LABS: BASOPHILS % 0.4 % (0.0-2.0); EOSINOPHILS % 1.3 % (0.0-5.0); HEMATOCRIT. 23.3 % (36.0-48.0); LYMPHOCYTES % 10.9 % (20.0-50.0); MEAN CORPUSCULAR HEMOGLOBIN 31.9 pg (28.0-32.0); MEAN CORPUSCULAR VOLUME 93.4 fL (81.0-99.0); MEAN PLATELET VOLUME 7.6 fl (7.4-10.4); MONOCYTES % 5.9 % (2.0-8.0); NEUTROPHILS % 81.5 % (40.0-76.0); PLATELET 215 x1000/uL (130-400); RED BLOOD CELL COUNT 2.49 mill/uL (4.2-5.4); RED CELL DISTRIBUTION WIDTH 15.1 % (11.6-14.6)
[2022-05-12 08:00] VITALS: BP 140/74
[2022-05-12] MEDS: AMLODIPINE 10MG TABLET PO SCH (08:15)
[2022-05-12 12:00] VITALS: BP 119/61
[2022-05-12 16:00] VITALS: BP 137/70
[2022-05-12 20:00] VITALS: BP 148/74
[2022-05-12] MEDS: EPOETIN ALFA-EPBX 4,000 UNIT/ML VIAL SUBCUT SCH (21:38)
[2022-05-13] VITALS: BP 133/66
[2022-05-13 04:00] VITALS: BP 139/77
[2022-05-13] MEDS: HYDRALAZINE HCL 100MG TABLET PO SCH ×3 (06:00→22:00)
[2022-05-13 08:00] VITALS: BP 121/81
[2022-05-13 08:17] LABS: BASOPHILS % 0.5 % (0.0-2.0); HEMATOCRIT. 24.6 % (36.0-48.0); HEMOGLOBIN. 8.4 g/dL (12.0-16.0); LYMPHOCYTES % 11.8 % (20.0-50.0); MEAN CORPUSCULAR HEMOGLOBIN 32.1 pg (28.0-32.0); MEAN CORPUSCULAR VOLUME 94.2 fL (81.0-99.0); MEAN PLATELET VOLUME 7.2 fl (7.4-10.4); MONOCYTES % 8.9 % (2.0-8.0); NEUTROPHILS % 76.8 % (40.0-76.0); PLATELET 249 x1000/uL (130-400); RED BLOOD CELL COUNT 2.61 mill/uL (4.2-5.4); RED CELL DISTRIBUTION WIDTH 14.9 % (11.6-14.6)
[2022-05-13] MEDS: AMLODIPINE 10MG TABLET PO SCH (09:00)
[2022-05-13 12:00] VITALS: BP 136/76
[2022-05-13 16:00] VITALS: BP 120/63
[2022-05-13 20:00] VITALS: BP 121/81
[2022-05-14] VITALS (17 sets, daily range): BP systolic 118–171; BP diastolic 67–89
[2022-05-14] MEDS: HYDRALAZINE HCL 100MG TABLET PO SCH ×3 (06:19→22:07)
[2022-05-14 07:01] LABS: BASOPHILS % 0.7 % (0.0-2.0); EOSINOPHILS % 2.4 % (0.0-5.0); HEMATOCRIT. 24.5 % (36.0-48.0); HEMOGLOBIN. 8.3 g/dL (12.0-16.0); LYMPHOCYTES % 10.9 % (20.0-50.0); MEAN CORPUSCULAR HEMOGLOBIN 31.8 pg (28.0-32.0); MEAN CORPUSCULAR VOLUME 93.8 fL (81.0-99.0); MEAN PLATELET VOLUME 6.9 fl (7.4-10.4); MONOCYTES % 9.4 % (2.0-8.0); NEUTROPHILS % 76.6 % (40.0-76.0); PLATELET 259 x1000/uL (130-400); RED BLOOD CELL COUNT 2.61 mill/uL (4.2-5.4)
[2022-05-14] MEDS ORDERED: IOHEXOL-300 100 ML BOTTLE ONE (08:29)
[2022-05-14] MEDS: AMLODIPINE 10MG TABLET PO SCH (10:16)
[2022-05-14 14:08] LABS: HEPATITIS B SURFACE ANTIGEN NEGATIVE
[2022-05-15] VITALS: BP 131/66
[2022-05-15 02:10] LABS: VITAMIN B12 SERUM 1004 pg/mL (211-911)
[2022-05-15 04:00] VITALS: BP 132/70
[2022-05-15] MEDS: HYDRALAZINE HCL 100MG TABLET PO SCH ×3 (05:56→22:25)
[2022-05-15 06:18] LABS: BASOPHILS % 0.7 % (0.0-2.0); EOSINOPHILS % 1.9 % (0.0-5.0); HEMATOCRIT. 25.1 % (36.0-48.0); HEMOGLOBIN. 8.4 g/dL (12.0-16.0); LYMPHOCYTES % 13.8 % (20.0-50.0); MEAN CORPUSCULAR HEMOGLOBIN 31.6 pg (28.0-32.0); MEAN CORPUSCULAR VOLUME 94.4 fL (81.0-99.0); MEAN PLATELET VOLUME 6.8 fl (7.4-10.4); MONOCYTES % 11.1 % (2.0-8.0); NEUTROPHILS % 72.5 % (40.0-76.0); PLATELET 281 x1000/uL (130-400); RED BLOOD CELL COUNT 2.66 mill/uL (4.2-5.4); RED CELL DISTRIBUTION WIDTH 14.8 % (11.6-14.6)
[2022-05-15] MEDS ORDERED: ONDANSETRON HCL 4MG/2ML INJ IV PRN (07:00)
[2022-05-15 12:00] VITALS: BP 142/84
[2022-05-15] MEDS: AMLODIPINE 10MG TABLET PO SCH (12:02)
[2022-05-15] MEDS ORDERED: LACTULOSE 20G/30ML UDC PO NR (15:30)
[2022-05-15 16:00] VITALS: BP 135/62
[2022-05-15 20:00] VITALS: BP 140/78
[2022-05-15] MEDS ORDERED: METOLAZONE 2.5MG TABLET PO NR (20:00)
[2022-05-15] MEDS: EPOETIN ALFA-EPBX 4,000 UNIT/ML VIAL SUBCUT SCH (22:25)
[2022-05-15] MEDS ORDERED: POTASSIUM CHLORIDE 20MEQ TABLET SR PO NR (22:30)
[2022-05-16] VITALS: BP 131/68
[2022-05-16 04:00] VITALS: BP 126/58
[2022-05-16] MEDS: HYDRALAZINE HCL 100MG TABLET PO SCH ×2 (05:59→14:00)
[2022-05-16 07:19] LABS: BASOPHILS % 0.9 % (0.0-2.0); EOSINOPHILS % 2.5 % (0.0-5.0); HEMATOCRIT. 25.8 % (36.0-48.0); HEMOGLOBIN. 8.5 g/dL (12.0-16.0); LYMPHOCYTES % 13.3 % (20.0-50.0); MEAN CORPUSCULAR HEMOGLOBIN 31.3 pg (28.0-32.0); MEAN CORPUSCULAR VOLUME 94.8 fL (81.0-99.0); MEAN PLATELET VOLUME 6.9 fl (7.4-10.4); MONOCYTES % 14.7 % (2.0-8.0); NEUTROPHILS % 68.6 % (40.0-76.0); PLATELET 291 x1000/uL (130-400); RED BLOOD CELL COUNT 2.72 mill/uL (4.2-5.4); RED CELL DISTRIBUTION WIDTH 14.6 % (11.6-14.6)
[2022-05-16 08:00] VITALS: BP 142/72
[2022-05-16] MEDS: AMLODIPINE 10MG TABLET PO SCH (09:00)
[2022-05-16] MEDS: ACETAMINOPHEN 325MG TABLET PO PRN ×2 (09:15→14:33)
[2022-05-16 12:00] VITALS: BP 134/70
[2022-05-16 14:28] VITALS: BP 132/70
== END 2022-05-16 15:50 | disposition home or self-care (01) | DRG 951 ==
LOC: ER 17:39 → 7EST 21:07 → ENRESERV 05-10 10:22
PROVIDERS: ADMIT Internal Medicine; ATTEND Internal Medicine
PROC: 30233N1 Transfusion of Nonautologous Red Blood Cells into Peripheral Vein, Percutaneous Approach (ICD-10-PCS; principal; 2022-05-09)
PROC: 05HM33Z Insertion of Infusion Device into Right Internal Jugular Vein, Percutaneous Approach (ICD-10-PCS; 2022-05-11)
PROC: B543ZZA Ultrasonography of Right Jugular Veins, Guidance (ICD-10-PCS; 2022-05-11)
PROC: 5A1D70Z Performance of Urinary Filtration, Intermittent, Less than 6 Hours Per Day (ICD-10-PCS; 2022-05-11)
PROC: 5A1D70Z Performance of Urinary Filtration, Intermittent, Less than 6 Hours Per Day (ICD-10-PCS; 2022-05-13)
PROC: 057Y3ZZ Dilation of Upper Vein, Percutaneous Approach (ICD-10-PCS; 2022-05-14)
DX: N92.0 Excessive and frequent menstruation with regular cycle (principal); I12.0 Hypertensive chronic kidney disease with stage 5 chronic kidney disease or end stage renal disease; E11.22 Type 2 diabetes mellitus with diabetic chronic kidney disease; D50.0 Iron deficiency anemia secondary to blood loss (chronic); E87.5 Hyperkalemia; Z20.822 Contact with and (suspected) exposure to COVID-19; N18.6 End stage renal disease; T82.858A Stenosis of other vascular prosthetic devices, implants and grafts, initial encounter; Z84.1 Family history of disorders of kidney and ureter; Z99.2 Dependence on renal dialysis; Z86.73 Personal history of transient ischemic attack (TIA), and cerebral infarction without residual deficits; Y84.1 Kidney dialysis as the cause of abnormal reaction of the patient, or of later complication, without mention of misadventure at the time of the procedure; Y92.89 Other specified places as the place of occurrence of the external cause
CPT/HCPCS: 36415; 36556; 36902; 71045; 76830; 76856; 76937; 80048; 80053; 82607; 82728; 82746; 82962; 83540; 83550; 84703; 85018; 85025; 85044; 86705; 86709; 86803; 86850; 86900; 86920; 87340; 87426; 93005; 93971; 94644; 94664; 99285; C1725; C1752; C1769; C1887; J0360; J0885; J1644; J1815; J3490; P9016; Q0163; Q9967